=== PATIENT | male | born 1940 | race Caucasian/White ===

== ENCOUNTER 2016-09-26 14:15 | Outpatient (CLI) | payer MEDICARE | END 2016-09-26 14:16 | disposition home or self-care (01) | DX: I48.91 Unspecified atrial fibrillation (principal) ==

== ENCOUNTER 2016-10-05 14:29 | Outpatient (CLI) | payer MEDICARE | END 2016-10-05 14:30 | disposition home or self-care (01) | DX: I48.91 Unspecified atrial fibrillation (principal) ==

== ENCOUNTER 2016-10-08 08:25 | Outpatient (CLI) | payer MEDICARE | END 2016-10-08 08:26 | disposition home or self-care (01) | DX: I48.91 Unspecified atrial fibrillation (principal) ==

== ENCOUNTER 2016-10-15 08:24 | Outpatient (CLI) | payer MEDICARE | END 2016-10-15 08:25 | disposition home or self-care (01) | DX: I48.91 Unspecified atrial fibrillation (principal) ==

== ENCOUNTER 2016-10-24 10:44 | Outpatient (CLI) | payer MEDICARE | END 2016-10-24 10:45 | disposition home or self-care (01) | DX: J30.9 Allergic rhinitis, unspecified (principal); D64.9 Anemia, unspecified; I48.91 Unspecified atrial fibrillation; L30.9 Dermatitis, unspecified; E78.5 Hyperlipidemia, unspecified; R73.01 Impaired fasting glucose; G47.33 Obstructive sleep apnea (adult) (pediatric); M25.561 Pain in right knee; R91.1 Solitary pulmonary nodule; I10 Essential (primary) hypertension ==

== ENCOUNTER 2016-11-26 14:15 | Outpatient (CLI) | payer MEDICARE | END 2016-11-26 14:16 | disposition home or self-care (01) | DX: I48.91 Unspecified atrial fibrillation (principal) ==

== ENCOUNTER 2016-11-27 13:20 | Outpatient (CLI) | payer MEDICARE ==
--- NOTE | 2016-11-27 16:48 | XRAY Report ---
THREE-VIEW RIGHT ANKLE: 11/27/2016 CLINICAL INDICATION: Pain. COMPARISON: Preop imaging 10/29/2014. FINDINGS: AP, lateral, oblique views of the right ankle demonstrate replacement of the tibiotalar george int. Diffuse soft tissue swelling is present. Three screws are noted in the calcaneus. There is no evidence of acute fracture. IMPRESSION: POSTOPERATIVE CHANGES OF TIBIOTALAR JOINT REPLACEMENT AND CALCANEAL FIXATION. NO EVIDEN CE OF ACUTE FRACTURE. JOB #: [id number] EXT JOB #:[id number]
== END 2016-11-27 13:21 | disposition home or self-care (01) ==
LOC: DI.S 13:20
PROVIDERS: ATTEND Internal Medicine
DX: M25.571 Pain in right ankle and joints of right foot (principal); Z96.661 Presence of right artificial ankle joint

== ENCOUNTER 2016-12-10 10:16 | Outpatient (CLI) | payer MEDICARE | END 2016-12-10 10:17 | disposition home or self-care (01) | DX: I48.91 Unspecified atrial fibrillation (principal) ==

== ENCOUNTER 2016-12-12 14:57 | Outpatient (CLI) | payer MEDICARE | END 2016-12-12 14:58 | disposition home or self-care (01) | DX: G47.33 Obstructive sleep apnea (adult) (pediatric) (principal) | CPT/HCPCS: 99214; G0463 ==

== ENCOUNTER 2016-12-24 08:00 | Outpatient (CLI) | payer MEDICARE | END 2016-12-24 08:01 | disposition home or self-care (01) | DX: Z53.9 Procedure and treatment not carried out, unspecified reason (principal) ==

== ENCOUNTER 2016-12-24 14:15 | Outpatient (CLI) | payer MEDICARE | END 2016-12-24 14:16 | disposition home or self-care (01) | DX: I48.91 Unspecified atrial fibrillation (principal) ==

== ENCOUNTER 2017-01-07 09:54 | Outpatient (CLI) | payer MEDICARE | END 2017-01-07 09:55 | disposition home or self-care (01) | DX: I48.91 Unspecified atrial fibrillation (principal) ==

== ENCOUNTER 2017-01-07 14:41 | Outpatient (CLI) | payer MEDICARE | END 2017-01-07 14:42 | disposition home or self-care (01) | DX: I48.91 Unspecified atrial fibrillation (principal); N40.1 Benign prostatic hyperplasia with lower urinary tract symptoms ==

== ENCOUNTER 2017-01-14 08:20 | Outpatient (CLI) | payer MEDICARE | END 2017-01-14 08:21 | disposition home or self-care (01) | DX: Z79.01 Long term (current) use of anticoagulants (principal) ==

== ENCOUNTER 2017-01-28 13:28 | Outpatient (CLI) | payer MEDICARE | END 2017-01-28 13:29 | disposition home or self-care (01) | LOC: LAB.S 13:28 | PROVIDERS: ATTEND Internal Medicine | DX: I48.91 Unspecified atrial fibrillation (principal) | CPT/HCPCS: 85610 ==

== ENCOUNTER 2017-02-04 10:52 | Outpatient (CLI) | payer MEDICARE | END 2017-02-04 10:53 | disposition home or self-care (01) | LOC: LAB.S 10:52 | PROVIDERS: ATTEND Internal Medicine | DX: I48.91 Unspecified atrial fibrillation (principal) | CPT/HCPCS: 85610 ==

== ENCOUNTER 2017-02-18 11:49 | Outpatient (CLI) | payer MEDICARE | END 2017-02-18 23:59 | disposition home or self-care (01) | LOC: LAB.S 11:49 | PROVIDERS: ATTEND Internal Medicine | DX: I48.91 Unspecified atrial fibrillation (principal) | CPT/HCPCS: 85610 ==

== ENCOUNTER 2017-03-04 09:05 | Outpatient (CLI) | payer MEDICARE | END 2017-03-04 09:06 | disposition home or self-care (01) | LOC: LAB.S 09:05 | PROVIDERS: ATTEND Internal Medicine | DX: I48.91 Unspecified atrial fibrillation (principal) | CPT/HCPCS: 85610 ==

== ENCOUNTER 2017-03-07 14:53 | Outpatient (CLI) | payer MEDICARE ==
--- NOTE | 2017-03-07 19:05 | CT Report ---
CT OF THE CHEST WITHOUT CONTRAST: 03/07/2017 CLINICAL HISTORY: On preceding exam of 08/31/2016, a 0.6 cm noncalcified nodule was noted in the anterior aspect of the right middle lobe. Present finding is being done to follow this lesion. TECHNIQUE: Axial, coronal, and sagittal reconstruction images were done at 5 x 5 mm intervals. FINDINGS: Mediastinum demonstrates mild paratracheal adenopathy as noted. There are some small benign-appearing paratracheal lymph nodes, the largest of which is in the right paratracheal area, once again seen. The vary from a few millimeters to 0.5 cm in diameter. They continue to have a benign appearance. Several small anterior carinal lymph nodes are once again noted and unchanged in size. They vary from a few millimeters to 0.7 cm. Normal cardiac size is seen with extensive coronary artery calcification noted in the left coronary artery and the anterior descending coronary artery. Also, coronary artery calcification is seen in the circumflex and right coronary arteries. Lung windows today demonstrate once again the 6 mm noncalcified nodule in the inferior anterior aspect of the right middle lobe. This is seen on axial slice 46. The size of this nodule is unchanged as compared to preceding exam. Some mild scarring and bleb formation is seen in the lung apices. There is a small focal subpleural density along the lateral posterior subpleural aspect of the right upper lobe that most likely represents some minimal pleural thickening and is unchanged. No new nodules are detected in the lung matthews. Some mild atelectasis or scarring is seen in the inferior segment of the left lingula. Bones show no significant abnormality. Upper abdomen demonstrates the liver to show a slightly septated cyst measuring 1.7 cm in the superior aspect of the medial right lobe of the liver. It is unchanged as compared to preceding exam. Bones show no significant abnormality. Anterior spur formation is seen in the thoracic spine with bridging osteophytes. With 6 mm nodules, recommend a repeat CT exam in 18 months according to Fleischner Society criteria. IMPRESSION: NO CHANGE IS DETECTED IN PREVIOUSLY SEEN 6 MM NODULE IN THE ANTERIOR INFERIOR ASPECT OF THE RIGHT MIDDLE LOBE COMPARED TO 08/31/2016. ACCORDING TO FLEISCHNER SOCIETY CRITERIA, RECOMMEND THE NEXT CT OF THE CHEST BE OBTAINED IN 18 MONTHS FOR FURTHER EVALUATION. BENIGN CYST IS SEEN IN THE SUPERIOR ASPECT OF THE RIGHT LOBE OF THE LIVER, MEASURING 1.7 CM. In accordance with CT protocol optimization, one or more of the following dose reduction techniques were utilized for this exam: automated exposure control, adjustment of mA and/or KV based on patient size, or use of iterative reconstructive technique. JOB #: [id number] EXT JOB #: [id number] MTDD
== END 2017-03-07 14:54 | disposition home or self-care (01) ==
LOC: DI 14:53
PROVIDERS: ATTEND Internal Medicine
DX: R91.1 Solitary pulmonary nodule (principal)
CPT/HCPCS: 71250

== ENCOUNTER 2017-03-11 09:24 | Outpatient (CLI) | payer MEDICARE | END 2017-03-11 09:25 | disposition home or self-care (01) | LOC: LAB.S 09:24 | PROVIDERS: ATTEND Internal Medicine | DX: I48.91 Unspecified atrial fibrillation (principal) | CPT/HCPCS: 85610 ==

== ENCOUNTER 2017-04-01 08:59 | Outpatient (CLI) | payer MEDICARE | END 2017-04-01 09:00 | disposition home or self-care (01) | LOC: LAB.S 08:59 | PROVIDERS: ATTEND Internal Medicine | DX: I48.91 Unspecified atrial fibrillation (principal) | CPT/HCPCS: 85610 ==

== ENCOUNTER 2017-04-15 08:00 | Outpatient (CLI) | payer MEDICARE | END 2017-04-15 08:01 | disposition home or self-care (01) | LOC: LAB.S 08:00 | PROVIDERS: ATTEND Internal Medicine | DX: I48.91 Unspecified atrial fibrillation (principal) | CPT/HCPCS: 85610 ==

== ENCOUNTER 2017-05-02 08:07 | Outpatient (CLI) | payer MEDICARE | END 2017-05-02 08:08 | disposition home or self-care (01) | LOC: LAB.F 08:07 | PROVIDERS: ATTEND Internal Medicine | DX: I48.91 Unspecified atrial fibrillation (principal) | CPT/HCPCS: 85610 ==

== ENCOUNTER 2017-05-09 07:39 | Outpatient (CLI) | payer MEDICARE | END 2017-05-09 07:40 | disposition home or self-care (01) | LOC: LAB.F 07:39 | PROVIDERS: ATTEND Internal Medicine | DX: I48.91 Unspecified atrial fibrillation (principal) | CPT/HCPCS: 85610 ==

== ENCOUNTER 2017-06-10 10:19 | Outpatient (CLI) | payer MEDICARE | END 2017-06-10 10:20 | disposition home or self-care (01) | LOC: LAB.S 10:19 | PROVIDERS: ATTEND Internal Medicine | DX: I48.91 Unspecified atrial fibrillation (principal) | CPT/HCPCS: 85610 ==

== ENCOUNTER 2017-06-20 11:21 | Outpatient (CLI) | payer MEDICARE | END 2017-06-20 11:22 | disposition home or self-care (01) | LOC: LAB.F 11:21 | PROVIDERS: ATTEND Internal Medicine | DX: I48.91 Unspecified atrial fibrillation (principal) | CPT/HCPCS: 85610 ==

== ENCOUNTER 2017-08-07 07:18 | Outpatient (CLI) | payer MEDICARE ==
[2017-08-07 10:58] LABS: BASOPHILS % (AUTO) 0.5 %; EOSINOPHILS # (AUTO) 0.1 10^3/uL (0.0-0.7); EOSINOPHILS % (AUTO) 2.2 %; HCT - HEMATOCRIT 37.7 % (42.0-52.0); HGB - HEMOGLOBIN 12.8 g/dL (14.0-18.0); LYMPHOCYTES # (AUTO) 1.1 10^3/uL (1.5-3.5); LYMPHOCYTES % (AUTO) 21.7 %; MEAN CORPUSCULAR HEMOGLOBIN 31.4 pg (27.0-31.0); MEAN CORPUSCULAR VOLUME 92.4 fL (80.0-94.0); MEAN PLATELET VOLUME 7.8 fL (7.4-11.4); MONOCYTES # (AUTO) 0.5 10^3/uL (0.0-1.0); MONOCYTES % (AUTO) 9.3 %; NEUTROPHILS # (AUTO) 3.4 10^3/uL (1.5-6.6); NEUTROPHILS % (AUTO) 66.3 %; NUCLEATED RED BLOOD CELLS AUTO 0.1 /100WBC; RED BLOOD COUNT 4.09 10^6/uL (4.70-6.10); RED CELL DISTRIBUTION WIDTH 14.9 % (12.0-15.0); UNCORRECTED WHITE BLOOD COUNT 5.1 x10^3/uL; WHITE BLOOD COUNT 5.1 x10^3/uL (4.8-10.8)
[2017-08-07 11:03] LABS: INR 2.3 (0.8-1.2); PT - PROTHROMBIN TIME 24.9 secs (9.9-12.6)
[2017-08-07 11:12] LABS: ALBUMIN/GLOBULIN RATIO 1.3 (1.0-2.2); BILIRUBIN,TOTAL 0.6 mg/dL (0.2-1.0); BUN - BLOOD UREA NITROGEN 14 mg/dL (6-20); CALCIUM 8.8 mg/dL (8.5-10.3); CARBON DIOXIDE - CO2 27 mmol/L (21-32); CHLORIDE 106 mmol/L (101-111); CHOL/HDL RATIO 3.1 (<5.0); CHOLESTEROL 145 mg/dL; CREATININE 0.6 mg/dL (0.6-1.2); GFR - MDRD 130 (>89); GLUCOSE 101 mg/dL (70-100); HDL CHOLESTEROL 47 mg/dL; LDL/HDL RATIO 1.9 (<3.6); POTASSIUM 3.8 mmol/L (3.5-5.0); SODIUM 140 mmol/L (135-145); TOTAL PROTEIN 6.8 g/dL (6.7-8.2); TRIGLYCERIDES 48 mg/dL; VLDL CHOLESTEROL 10 mg/dL
[2017-08-07 11:22] LABS: HEMOGLOBIN A1C 0.56 g/dL
== END 2017-08-07 07:19 | disposition home or self-care (01) ==
LOC: LAB.F 07:18
PROVIDERS: ATTEND Internal Medicine
DX: I10 Essential (primary) hypertension (principal); E78.5 Hyperlipidemia, unspecified; E55.9 Vitamin D deficiency, unspecified; R73.01 Impaired fasting glucose; Z12.5 Encounter for screening for malignant neoplasm of prostate; R35.1 Nocturia; D64.9 Anemia, unspecified; Z79.01 Long term (current) use of anticoagulants
CPT/HCPCS: 36415; 80053; 80061; 82306; 83036; 84153; 85025; 85610

== ENCOUNTER 2017-08-28 11:38 | Outpatient (CLI) | payer MEDICARE | END 2017-08-28 11:39 | disposition home or self-care (01) | LOC: LAB.F 11:38 | PROVIDERS: ATTEND Internal Medicine | DX: I48.91 Unspecified atrial fibrillation (principal); Z79.01 Long term (current) use of anticoagulants | CPT/HCPCS: 85610 ==

== ENCOUNTER 2017-09-19 14:04 | Outpatient (CLI) | payer MEDICARE | END 2017-09-19 14:05 | disposition home or self-care (01) | LOC: LAB.F 14:04 | PROVIDERS: ATTEND Physician Assistant Medical | DX: Z79.01 Long term (current) use of anticoagulants (principal) | CPT/HCPCS: 85610 ==

== ENCOUNTER 2017-09-30 10:13 | Outpatient (CLI) | payer MEDICARE | END 2017-09-30 10:14 | disposition home or self-care (01) | LOC: LAB.F 10:13 | PROVIDERS: ATTEND Physician Assistant Medical | DX: Z79.01 Long term (current) use of anticoagulants (principal) | CPT/HCPCS: 85610 ==

== ENCOUNTER 2017-10-14 09:24 | Outpatient (CLI) | payer MEDICARE | END 2017-10-14 09:25 | disposition home or self-care (01) | LOC: LAB.S 09:24 | PROVIDERS: ATTEND Physician Assistant Medical | DX: Z79.01 Long term (current) use of anticoagulants (principal) | CPT/HCPCS: 85610 ==

== ENCOUNTER 2017-10-29 10:48 | Outpatient (CLI) | payer MEDICARE | END 2017-10-29 10:49 | disposition home or self-care (01) | LOC: LAB.F 10:48 | PROVIDERS: ATTEND Physician Assistant Medical | DX: Z79.01 Long term (current) use of anticoagulants (principal) | CPT/HCPCS: 85610 ==

== ENCOUNTER 2017-11-01 07:00 | Day surgery (SDC) | payer MEDICARE ==
[2017-11-01] MEDS ORDERED: GLUCAGON 1 MG/ML VIAL IM ONE (07:01)
[2017-11-01] MEDS ORDERED: LIDOCAINE-MPF 2% 5 ML VIAL IM ONE (07:01)
[2017-11-01] MEDS ORDERED: PROPOFOL 200 MG/20 ML VIAL IVP ONE (07:01)
[2017-11-01] MEDS ORDERED: LACTATED RINGERS 1,000 ML IV ONE ×2 (07:12→09:03)
[2017-11-01 09:23] VITALS: BP 146/85
== END 2017-11-01 07:01 | disposition home or self-care (01) ==
LOC: SDS 07:00
PROVIDERS: ATTEND Surgery
PROC: 0DBL8ZX Excision of Transverse Colon, Via Natural or Artificial Opening Endoscopic, Diagnostic (ICD-10-PCS; 2017-11-01)
PROC: 0DBN8ZX Excision of Sigmoid Colon, Via Natural or Artificial Opening Endoscopic, Diagnostic (ICD-10-PCS; 2017-11-01)
PROC: 0DBP8ZX Excision of Rectum, Via Natural or Artificial Opening Endoscopic, Diagnostic (ICD-10-PCS; 2017-11-01)
PROC: 0DBM8ZX Excision of Descending Colon, Via Natural or Artificial Opening Endoscopic, Diagnostic (ICD-10-PCS; principal; 2017-11-01 08:15)
DX: Z12.11 Encounter for screening for malignant neoplasm of colon (principal); K57.30 Diverticulosis of large intestine without perforation or abscess without bleeding; K64.8 Other hemorrhoids; D12.3 Benign neoplasm of transverse colon; D12.5 Benign neoplasm of sigmoid colon; K62.1 Rectal polyp; K63.5 Polyp of colon; I48.0 Paroxysmal atrial fibrillation; I10 Essential (primary) hypertension; E78.5 Hyperlipidemia, unspecified; Z79.01 Long term (current) use of anticoagulants
CPT/HCPCS: 45384; J7120

== ENCOUNTER 2017-11-08 07:23 | Outpatient (CLI) | payer MEDICARE | END 2017-11-08 07:24 | disposition home or self-care (01) | LOC: LAB.F 07:23 | PROVIDERS: ATTEND Physician Assistant Medical | DX: Z79.01 Long term (current) use of anticoagulants (principal) | CPT/HCPCS: 85610 ==

== ENCOUNTER 2017-11-11 08:00 | Outpatient (CLI) | payer MEDICARE | END 2017-11-11 08:01 | disposition home or self-care (01) | LOC: LAB.S 08:00 | PROVIDERS: ATTEND Internal Medicine | DX: I48.91 Unspecified atrial fibrillation (principal) | CPT/HCPCS: 85610 ==

== ENCOUNTER 2017-11-15 09:44 | Outpatient (CLI) | payer MEDICARE | END 2017-11-15 09:45 | disposition home or self-care (01) | LOC: LAB.F 09:44 | PROVIDERS: ATTEND Physician Assistant Medical | DX: Z79.01 Long term (current) use of anticoagulants (principal) | CPT/HCPCS: 85610 ==

== ENCOUNTER 2017-11-28 09:42 | Outpatient (CLI) | payer MEDICARE | END 2017-11-28 09:43 | disposition home or self-care (01) | LOC: LAB.F 09:42 | PROVIDERS: ATTEND Physician Assistant Medical | DX: Z79.01 Long term (current) use of anticoagulants (principal) | CPT/HCPCS: 85610 ==

== ENCOUNTER 2017-12-05 13:09 | Outpatient (CLI) | payer MEDICARE | END 2017-12-05 13:10 | disposition home or self-care (01) | LOC: LAB.F 13:09 | PROVIDERS: ATTEND Physician Assistant Medical | DX: Z79.01 Long term (current) use of anticoagulants (principal) | CPT/HCPCS: 85610 ==

== ENCOUNTER 2017-12-10 11:00 | Outpatient (CLI) | payer MEDICARE | END 2017-12-10 11:01 | disposition home or self-care (01) | LOC: LAB.F 11:00 | PROVIDERS: ATTEND Physician Assistant Medical | DX: Z79.01 Long term (current) use of anticoagulants (principal) | CPT/HCPCS: 85610 ==

== ENCOUNTER 2017-12-16 08:00 | Outpatient (CLI) | payer MEDICARE ==
[2017-12-16 18:14] LABS: PSA FREE 0.59 ng/mL (0.16-2.81)
[2017-12-16 18:15] LABS: PSA TOTAL 3.23 ng/mL (0.000-2.000)
[2017-12-16 18:26] LABS: ALBUMIN 4.1 g/dL (3.2-5.5); ALBUMIN/GLOBULIN RATIO 1.5 (1.0-2.2); ALKALINE PHOSPHATASE 61 IU/L (42-121); ALT ALANINE AMINOTRANSFERASE 25 IU/L (10-60); AST ASPARTATE AMINOTRANSFERASE 21 IU/L (10-42); BILIRUBIN,TOTAL 0.6 mg/dL (0.2-1.0); BUN - BLOOD UREA NITROGEN 23 mg/dL (6-20); CALCIUM 9.3 mg/dL (8.5-10.3); CARBON DIOXIDE - CO2 30 mmol/L (21-32); CHLORIDE 103 mmol/L (101-111); CHOL/HDL RATIO 3.1 (<5.0); CHOLESTEROL 167 mg/dL; CREATININE 0.9 mg/dL (0.6-1.2); GFR - MDRD 82 (>89); GLUCOSE 102 mg/dL (70-100); HDL CHOLESTEROL 54 mg/dL; LDL CHOLESTEROL,CALCULATED 102 mg/dL; LDL/HDL RATIO 1.9 (<3.6); SODIUM 140 mmol/L (135-145); TOTAL PROTEIN 6.8 g/dL (6.7-8.2); VLDL CHOLESTEROL 11 mg/dL
[2017-12-16 19:20] LABS: HB2 TOTAL 13.8 g/dL; HEMOGLOBIN A1C 0.61 g/dL; HEMOGLOBIN A1C % 6.2 % (4.6-6.2)
== END 2017-12-16 08:01 ==
LOC: LAB.S 08:00
PROVIDERS: ATTEND Physician Assistant Medical
DX: Z79.01 Long term (current) use of anticoagulants (principal); I10 Essential (primary) hypertension; E78.5 Hyperlipidemia, unspecified; R73.01 Impaired fasting glucose; R97.20 Elevated prostate specific antigen [PSA]
CPT/HCPCS: 36415; 80053; 80061; 83036; 83721; 84154; 85610

== ENCOUNTER 2017-12-23 15:05 | Emergency (ER) | payer MEDICARE ==
[2017-12-23 15:46] LABS: BASOPHILS % (AUTO) 0.5 %; EOSINOPHILS % (AUTO) 0.4 %; HGB - HEMOGLOBIN 13.5 g/dL (14.0-18.0); LYMPHOCYTES # (AUTO) 1.1 10^3/uL (1.5-3.5); LYMPHOCYTES % (AUTO) 11.1 %; MEAN CORPUSCULAR HGB CONC 32.7 g/dL (32.0-36.0); MEAN CORPUSCULAR VOLUME 91.5 fL (80.0-94.0); MEAN PLATELET VOLUME 7.1 fL (7.4-11.4); MONOCYTES # (AUTO) 0.7 10^3/uL (0.0-1.0); MONOCYTES % (AUTO) 7.4 %; NEUTROPHILS # (AUTO) 7.9 10^3/uL (1.5-6.6); NEUTROPHILS % (AUTO) 80.6 %; PLT - PLATELET COUNT 302 10^3/uL (130-450); RED BLOOD COUNT 4.51 10^6/uL (4.70-6.10); RED CELL DISTRIBUTION WIDTH 14.7 % (12.0-15.0); WHITE BLOOD COUNT 9.8 x10^3/uL (4.8-10.8)
--- NOTE | 2017-12-23 15:47 | XRAY Preliminary Report ---
Exam: XR CHEST 2 VIEW X-RAY IMPRESSION: Normal 2-view chest radiography. Note that follow-up chest CT to confirm long-term stabil ity of the 6 mm right middle lobe is still recommended as per chest CT report 03/07/2017. [facility] SITE ID: [id number]
--- NOTE | 2017-12-23 15:50 | XRAY Report ---
EXAM: CHEST RADIOGRAPHY EXAM DATE: 12/23/2017 03:31 PM. CLINICAL HISTORY: Shortness of breath and chest pressure since early this morning. COMPARISON: CT chest 03/07/2017. TECHNIQUE: 2 views. FINDINGS: Lungs/Pleura: No focal opacities evident. No pleural effusion. No pneumothorax. Normal volumes. The 6 mm noncalcified nodule noted in the inferior aspect right middle lobe not seen on the chest x-r ay. Mediastinum: Heart and mediastinal contours are unremarkable. Other: None. IMPRESSION: Normal 2-view chest radiography. Note that follow-up chest CT to confirm long-term stabil ity of the 6 mm right middle lobe nodule is still recommended as per chest CT report 03/07/2017. [facility] Referring Provider Line: [phone] SITE ID: [id number]
[2017-12-23 15:59] LABS: ALBUMIN 4.3 g/dL (3.2-5.5); ALBUMIN/GLOBULIN RATIO 1.4 (1.0-2.2); BILIRUBIN,TOTAL 0.8 mg/dL (0.2-1.0); CREATININE 1.4 mg/dL (0.6-1.2); TOTAL PROTEIN 7.3 g/dL (6.7-8.2)
--- NOTE | 2017-12-23 17:25 | ED Physician Documentation ---
PD HPI CHEST PAIN - Stated complaint Stated Complaint: CHEST PX/LOW BLOOD PRESSURE - Chief complaint Chief Complaint: Cardiac - History obtained from History obtained from: Patient - History of Present Illness Timing - onset: How many hours ago (7), Today (this morning) Timing - onset during: Rest (he felt some chest pressure when he awoke this morning and lasted about 1/2 hour. He took his BP by home helath erikae there for his and got BP 80/40. He did not note heart rate. Did not feel faint. He is subsequently feeling okay the rest of the morning. He called his PMD office and referred to ED.) Timing - details: Gradual onset, Now resolved Quality: Pressure, Tightness Location: Substernal, Left chest Radiation: No: Neck, Left upper extremity, Right upper extremity Worsened by: No: Inspiration, Eating, Movement Associated symptoms: No: Shortness of air, Diaphoresis, Nausea, Feeling faint / dizzy, Palpitations Similar symptoms before: Has not had sx before Recently seen: Not recently seen Review of Systems Constitutional: denies: Fever, Chills Nose: denies: Rhinorrhea / runny nose, Congestion Throat: denies: Sore throat Cardiac: denies: Chest pain / pressure, Palpitations Respiratory: denies: Dyspnea, Cough GI: denies: Abdominal Pain, Nausea, Vomiting, Diarrhea, Bloody / black stool : denies: Dysuria, Frequency Skin: denies: Rash, Lesions Neurologic: denies: Focal weakness, Numbness, Difficulty speaking, Near syncope , Altered mental status, Headache Endocrine: denies: Weight loss Immunocompromised: denies: Immunocompromised PD PAST MEDICAL HISTORY - Past Medical History Cardiovascular: Atrial fibrillation Respiratory: None Neuro: None Endocrine/Autoimmune: None - Present Medications Home Medications: Ambulatory Orders Medication Instructions Recorded Confirmed Atorvastatin [Lipitor] 10 mg PO DAILY 11/01/17 11/01/17 Diltiazem HCl [Dilt-Xr] 360 mg PO DAILY 11/01/17 11/01/17 Warfarin Sodium 10 mg PO DAILY 11/01/17 11/01/17 hydroCHLOROthiazide 25 mg PO DAILY 11/01/17 11/01/17 [Hydrochlorothiazide] - Allergies Allergies/Adverse Reactions: Allergies Allergy/AdvReac Type Severity Reaction Status Date / Time No Known Drug Allergies Allergy Verified 11/01/17 07:25 - Family History Family history: denies: Aortic aneursym, Aortic dissection PD ED PE NORMAL - Vitals Vital signs reviewed: Yes - General General: Alert and oriented X 3, No acute distress, Well developed/nourished - HEENT HEENT: Pharynx benign - Neck Neck: Supple, no meningeal sign, No adenopathy - Cardiac Cardiac: No murmur. No: RRR (fast rate about 120-130 with some irregular. ) - Respiratory Respiratory: Clear bilaterally - Abdomen Abdomen: Soft, Non tender - Back Back: No CVA TTP - Derm Derm: Normal color, Warm and dry - Extremities Extremities: No tenderness to palpate, No edema, No calf tenderness / cord Results - Vitals Vitals: Oxygen O2 Source Room air - EKG (time done) 15:14 Rate: Rate (enter#) (125) Rhythm: Atrial fibrillation [place]: LAD Intervals: RBBB Ischemia: Normal ST segments, Non specific changes (correlated with the BBB.) Compare to prior EKG: Unchanged from prior EKG - Labs Labs: Laboratory Tests 12/23/17 12/23/17 12/23/17 13:46 15:36 15:36 WBC 9.8 RBC 4.51 L Hgb 13.5 L Hct 41.3 L MCV 91.5 MCH 30.0 MCHC 32.7 RDW 14.7 Plt Count 302 MPV 7.1 L Neut # 7.9 H Lymph # 1.1 L [place] # 0.7 Eos # 0.0 Baso # 0.0 Absolute Nucleated RBC 0.01 Nucleated RBC % 0.1 PT 37.0 H INR 3.4 H Sodium 136 Potassium 4.0 Chloride 102 Carbon Dioxide 26 Anion Gap 8.0 BUN 31 H Creatinine 1.4 H Estimated GFR (MDRD) 49 L Glucose 125 H Calcium 9.0 Magnesium Total Bilirubin 0.8 AST 23 ALT 27 Alkaline Phosphatase 71 Troponin I Total Protein 7.3 Albumin 4.3 Globulin 3.0 Albumin/Globulin Ratio 1.4 Lipase 12 L 12/23/17 12/23/17 15:36 17:49 WBC RBC Hgb Hct MCV MCH MCHC RDW Plt Count MPV Neut # Lymph # [place] # Eos # Baso # Absolute Nucleated RBC Nucleated RBC % PT INR Sodium Potassium Chloride Carbon Dioxide Anion Gap BUN Creatinine Estimated GFR (MDRD) Glucose Calcium Magnesium 2.2 Total Bilirubin AST ALT Alkaline Phosphatase Troponin I 0.05 Total Protein Albumin Globulin Albumin/Globulin Ratio Lipase - Rads (name of study) chest Radiology: Prelim report reviewed, EMP read contemporaneously (normal) PD MEDICAL DECISION MAKING - ED course Complexity details: reviewed results, re-evaluated patient (his atrial fib is slower but still about 100 and he is feeling okay. He has short bursts of faster rate, but feels okay with it. ), considered differential (transient low BP with lightheadedness. He is in atrial fib and this seems chronic and he believes it is chronic. Given IV med to slow the rate from 130s to 100. Normal BP while in ED. Labs are okay. He would like to go home and this seems reasonable. ), d/w patient Departure - Departure Disposition: 01 Home, Self Care Clinical Impression: Near syncope, Atrial fibrillation with rapid ventricular response, Transient hypotension Condition: Stable Record reviewed to determine appropriate education?: Yes Instructions: ED Afib Follow-Up: Darby Estrada PA-C [Primary Care Provider] - Comments: Drink lots of fluids. Continue usual medications. It looks that your heart rate fibrillation is going fast and slow at times. This may have given your symptoms earlier today if it was going fast more consistently. He seemed to be doing okay right now. Continue usual medications and follow-up with your primary care in the next couple of days. Return if repeated symptoms or chest pain, lightheadedness, consistently fast heart rate. Discharge Date/Time: 12/23/17 20:05
[2017-12-23 18:07] LABS: INR 3.4 (0.8-1.2)
[2017-12-23] MEDS ORDERED: diltiaZEM INJ 5 MG/ML VIAL IVP STA (19:04)
[2017-12-23 20:05] VITALS: BP 127/94
== END 2017-12-23 20:05 | disposition home or self-care (01) ==
LOC: ED 15:05
DX: R55 Syncope and collapse (principal); I48.91 Unspecified atrial fibrillation; I95.9 Hypotension, unspecified; I45.10 Unspecified right bundle-branch block; Z79.01 Long term (current) use of anticoagulants
CPT/HCPCS: 36415; 71046; 80053; 83690; 83735; 84484; 85025; 85610; 93005; 96374; 99284

== ENCOUNTER 2017-12-30 10:41 | Outpatient (CLI) | payer MEDICARE | END 2017-12-30 10:42 | LOC: LAB.S 10:41 | PROVIDERS: ATTEND Physician Assistant Medical | DX: Z79.01 Long term (current) use of anticoagulants (principal) | CPT/HCPCS: 85610 ==

== ENCOUNTER 2018-01-06 09:08 | Outpatient (CLI) | payer MEDICARE | END 2018-01-06 09:09 | disposition home or self-care (01) | LOC: LAB.S 09:08 | PROVIDERS: ATTEND Physician Assistant Medical | DX: Z79.01 Long term (current) use of anticoagulants (principal) | CPT/HCPCS: 85610 ==

== ENCOUNTER 2018-01-17 14:37 | Outpatient (CLI) | payer MEDICARE | END 2018-01-17 14:38 | disposition home or self-care (01) | LOC: LAB.F 14:37 | PROVIDERS: ATTEND Family Medicine | DX: Z79.01 Long term (current) use of anticoagulants (principal); I48.91 Unspecified atrial fibrillation | CPT/HCPCS: 85610 ==

== ENCOUNTER 2018-01-20 08:00 | Outpatient (CLI) | payer MEDICARE | END 2018-01-20 08:01 | disposition home or self-care (01) | LOC: LAB.S 08:00 | PROVIDERS: ATTEND Family Medicine | DX: I48.0 Paroxysmal atrial fibrillation (principal); Z79.01 Long term (current) use of anticoagulants | CPT/HCPCS: 85610 ==

== ENCOUNTER 2018-01-27 09:41 | Outpatient (CLI) | payer MEDICARE | END 2018-01-27 09:42 | disposition home or self-care (01) | LOC: LAB.S 09:41 | PROVIDERS: ATTEND Family Medicine | DX: I48.91 Unspecified atrial fibrillation (principal); Z79.01 Long term (current) use of anticoagulants | CPT/HCPCS: 85610 ==

== ENCOUNTER 2018-01-31 13:12 | Outpatient (CLI) | payer MEDICARE | END 2018-01-31 13:13 | disposition home or self-care (01) | LOC: LAB.F 13:12 | PROVIDERS: ATTEND Family Medicine | DX: I48.91 Unspecified atrial fibrillation (principal); Z79.01 Long term (current) use of anticoagulants | CPT/HCPCS: 85610 ==

== ENCOUNTER 2018-02-07 15:04 | Outpatient (CLI) | payer MEDICARE | END 2018-02-07 15:05 | disposition home or self-care (01) | LOC: LAB.F 15:04 | PROVIDERS: ATTEND Family Medicine | DX: I48.91 Unspecified atrial fibrillation (principal); Z79.01 Long term (current) use of anticoagulants | CPT/HCPCS: 85610 ==

== ENCOUNTER 2018-02-17 13:32 | Outpatient (CLI) | payer MEDICARE | END 2018-02-17 13:33 | disposition home or self-care (01) | LOC: LAB.S 13:32 | PROVIDERS: ATTEND Family Medicine | DX: I48.91 Unspecified atrial fibrillation (principal); Z79.01 Long term (current) use of anticoagulants | CPT/HCPCS: 85610 ==

== ENCOUNTER 2018-03-03 15:13 | Outpatient (CLI) | payer MEDICARE | END 2018-03-03 15:14 | disposition home or self-care (01) | LOC: LAB.S 15:13 | PROVIDERS: ATTEND Family Medicine | DX: I48.91 Unspecified atrial fibrillation (principal); Z79.01 Long term (current) use of anticoagulants | CPT/HCPCS: 85610 ==

== ENCOUNTER 2018-03-18 13:26 | Outpatient (CLI) | payer MEDICARE | END 2018-03-18 13:27 | disposition home or self-care (01) | LOC: LAB.F 13:26 | PROVIDERS: ATTEND Family Medicine | DX: I48.91 Unspecified atrial fibrillation (principal); Z79.01 Long term (current) use of anticoagulants | CPT/HCPCS: 85610 ==

== ENCOUNTER 2018-03-31 13:45 | Outpatient (CLI) | payer MEDICARE | END 2018-03-31 13:46 | disposition home or self-care (01) | LOC: LAB.S 13:45 | PROVIDERS: ATTEND Family Medicine | DX: I48.91 Unspecified atrial fibrillation (principal); Z79.01 Long term (current) use of anticoagulants | CPT/HCPCS: 85610 ==

== ENCOUNTER 2018-04-04 07:14 | Outpatient (CLI) | payer MEDICARE ==
[2018-04-04 12:08] LABS: ALBUMIN/GLOBULIN RATIO 1.4 (1.0-2.2); ALKALINE PHOSPHATASE 70 IU/L (42-121); ALT ALANINE AMINOTRANSFERASE 26 IU/L (10-60); AST ASPARTATE AMINOTRANSFERASE 26 IU/L (10-42); BILIRUBIN,TOTAL 0.7 mg/dL (0.2-1.0); BUN - BLOOD UREA NITROGEN 13 mg/dL (6-20); CALCIUM 9.1 mg/dL (8.5-10.3); CARBON DIOXIDE - CO2 31 mmol/L (21-32); CHLORIDE 102 mmol/L (101-111); CHOL/HDL RATIO 3.1 (<5.0); CHOLESTEROL 167 mg/dL; CREATININE 0.7 mg/dL (0.6-1.2); GFR - MDRD 109 (>89); GLUCOSE 104 mg/dL (70-100); HDL CHOLESTEROL 54 mg/dL; LDL CHOLESTEROL,CALCULATED 100 mg/dL; LDL/HDL RATIO 1.9 (<3.6); SODIUM 139 mmol/L (135-145); TOTAL PROTEIN 6.8 g/dL (6.7-8.2); VLDL CHOLESTEROL 13 mg/dL
[2018-04-04 12:11] LABS: PSA FREE 0.72 ng/mL (0.16-2.81); PSA TOTAL 3.43 ng/mL (0.000-2.000)
[2018-04-04 12:20] LABS: HB2 TOTAL 13.8 g/dL; HEMOGLOBIN A1C 0.61 g/dL; HEMOGLOBIN A1C % 6.2 % (4.6-6.2)
== END 2018-04-04 07:15 | disposition home or self-care (01) ==
LOC: LAB.F 07:14
PROVIDERS: ATTEND Family Medicine
DX: I10 Essential (primary) hypertension (principal); E78.5 Hyperlipidemia, unspecified; R73.01 Impaired fasting glucose; I48.91 Unspecified atrial fibrillation; Z79.01 Long term (current) use of anticoagulants; R97.20 Elevated prostate specific antigen [PSA]
CPT/HCPCS: 36415; 80053; 80061; 83036; 83721; 84154; 85610

== ENCOUNTER 2018-04-15 13:12 | Outpatient (CLI) | payer MEDICARE | END 2018-04-15 13:13 | disposition home or self-care (01) | LOC: LAB.F 13:12 | PROVIDERS: ATTEND Family Medicine | DX: I48.91 Unspecified atrial fibrillation (principal); Z79.01 Long term (current) use of anticoagulants | CPT/HCPCS: 85610 ==

== ENCOUNTER 2018-04-21 15:19 | Outpatient (CLI) | payer MEDICARE | END 2018-04-21 15:20 | disposition home or self-care (01) | LOC: LAB.S 15:19 | PROVIDERS: ATTEND Family Medicine | DX: I48.91 Unspecified atrial fibrillation (principal); Z79.01 Long term (current) use of anticoagulants | CPT/HCPCS: 85610 ==

== ENCOUNTER 2018-05-27 13:15 | Outpatient (CLI) | payer MEDICARE | END 2018-05-27 13:16 | disposition home or self-care (01) | LOC: LAB.F 13:15 | PROVIDERS: ATTEND Nurse Practitioner Family | DX: I48.0 Paroxysmal atrial fibrillation (principal) | CPT/HCPCS: 85610 ==

== ENCOUNTER 2018-06-26 13:36 | Outpatient (CLI) | payer MEDICARE | END 2018-06-26 13:37 | disposition home or self-care (01) | LOC: LAB.F 13:36 | PROVIDERS: ATTEND Nurse Practitioner Family | DX: I48.0 Paroxysmal atrial fibrillation (principal) | CPT/HCPCS: 85610 ==

== ENCOUNTER 2018-07-04 13:58 | Outpatient (CLI) | payer MEDICARE | END 2018-07-04 13:59 | disposition home or self-care (01) | LOC: LAB.F 13:58 | PROVIDERS: ATTEND Nurse Practitioner Family | DX: I48.0 Paroxysmal atrial fibrillation (principal) | CPT/HCPCS: 85610 ==

== ENCOUNTER 2018-07-18 02:24 | Outpatient (CLI) | payer MEDICARE | END 2018-07-18 02:25 | disposition short-term general hospital (02) | LOC: EMS 02:24 | PROVIDERS: ATTEND Surgery | DX: R07.9 Chest pain, unspecified (principal) | CPT/HCPCS: A0425; A0427 ==

== ENCOUNTER 2018-07-30 11:38 | Outpatient (CLI) | payer MEDICARE ==
[2018-07-30 18:23] LABS: INR 3.1 (0.8-1.2); PT - PROTHROMBIN TIME 34.5 secs (9.9-12.6)
== END 2018-07-30 11:39 | disposition home or self-care (01) ==
LOC: LAB.F 11:38
PROVIDERS: ATTEND Nurse Practitioner Family
DX: I48.0 Paroxysmal atrial fibrillation (principal)
CPT/HCPCS: 36415; 85610

== ENCOUNTER 2018-08-11 08:00 | Outpatient (CLI) | payer MEDICARE | END 2018-08-11 08:01 | disposition home or self-care (01) | LOC: LAB.S 08:00 | PROVIDERS: ATTEND Nurse Practitioner Family | DX: I48.0 Paroxysmal atrial fibrillation (principal) | CPT/HCPCS: 85610 ==

== ENCOUNTER 2018-08-22 13:03 | Outpatient (CLI) | payer MEDICARE | END 2018-08-22 13:04 | disposition home or self-care (01) | LOC: LAB.F 13:03 | PROVIDERS: ATTEND Nurse Practitioner Family | DX: I48.0 Paroxysmal atrial fibrillation (principal) | CPT/HCPCS: 85610 ==

== ENCOUNTER 2018-09-01 19:39 | Outpatient (CLI) | payer MEDICARE | END 2018-09-01 23:59 | disposition home or self-care (01) | LOC: LAB.S 19:39 | PROVIDERS: ATTEND Nurse Practitioner Family | DX: I48.0 Paroxysmal atrial fibrillation (principal) | CPT/HCPCS: 85610 ==

== ENCOUNTER 2018-09-10 08:00 | Outpatient (CLI) | payer MEDICARE | END 2018-09-10 23:59 | disposition home or self-care (01) | LOC: LAB.R 08:00 | PROVIDERS: ATTEND Nurse Practitioner Family | DX: I48.0 Paroxysmal atrial fibrillation (principal) | CPT/HCPCS: 85610 ==

== ENCOUNTER 2018-09-22 08:00 | Outpatient (CLI) | payer MEDICARE ==
[2018-09-22 19:05] LABS: BASOPHILS % (AUTO) 0.2 %; EOSINOPHILS # (AUTO) 0.1 10^3/uL (0.0-0.7); EOSINOPHILS % (AUTO) 3.2 %; HGB - HEMOGLOBIN 12.1 g/dL (14.0-18.0); LYMPHOCYTES # (AUTO) 0.9 10^3/uL (1.5-3.5); LYMPHOCYTES % (AUTO) 18.7 %; MEAN CORPUSCULAR HEMOGLOBIN 31.8 pg (27.0-31.0); MEAN CORPUSCULAR HGB CONC 33.4 g/dL (32.0-36.0); MEAN CORPUSCULAR VOLUME 95.2 fL (80.0-94.0); MEAN PLATELET VOLUME 7.6 fL (7.4-11.4); MONOCYTES # (AUTO) 0.4 10^3/uL (0.0-1.0); MONOCYTES % (AUTO) 8.8 %; NEUTROPHILS # (AUTO) 3.3 10^3/uL (1.5-6.6); NEUTROPHILS % (AUTO) 69.1 %; PLT - PLATELET COUNT 315 10^3/uL (130-450); RED CELL DISTRIBUTION WIDTH 13.4 % (12.0-15.0); WHITE BLOOD COUNT 4.7 x10^3/uL (4.8-10.8)
[2018-09-22 19:11] LABS: ALBUMIN 3.7 g/dL (3.2-5.5); ALBUMIN/GLOBULIN RATIO 1.2 (1.0-2.2); ALKALINE PHOSPHATASE 62 IU/L (42-121); ALT ALANINE AMINOTRANSFERASE 27 IU/L (10-60); AST ASPARTATE AMINOTRANSFERASE 25 IU/L (10-42); BILIRUBIN,TOTAL 0.8 mg/dL (0.2-1.0); BUN - BLOOD UREA NITROGEN 20 mg/dL (6-20); CALCIUM 8.8 mg/dL (8.5-10.3); CARBON DIOXIDE - CO2 30 mmol/L (21-32); CHLORIDE 101 mmol/L (101-111); CHOL/HDL RATIO 3.6 (<5.0); CHOLESTEROL 163 mg/dL; CREATININE 0.7 mg/dL (0.6-1.2); GFR - MDRD 109 (>89); GLUCOSE 105 mg/dL (70-100); HDL CHOLESTEROL 45 mg/dL; LDL CHOLESTEROL,CALCULATED 100 mg/dL; LDL/HDL RATIO 2.2 (<3.6); SODIUM 137 mmol/L (135-145); TOTAL PROTEIN 6.9 g/dL (6.7-8.2); VLDL CHOLESTEROL 18 mg/dL
[2018-09-22 19:14] LABS: PSA FREE 0.506 ng/mL (0.16-2.81)
[2018-09-22 19:17] LABS: PSA TOTAL 3.334 ng/mL (0.000-2.000)
[2018-09-22 20:02] LABS: HB2 TOTAL 12.5 g/dL; HEMOGLOBIN A1C 0.51 g/dL; HEMOGLOBIN A1C % 5.9 % (4.6-6.2)
== END 2018-09-22 23:59 | disposition home or self-care (01) ==
LOC: LAB.S 08:00
PROVIDERS: ATTEND Nurse Practitioner Family
DX: I48.0 Paroxysmal atrial fibrillation (principal); I10 Essential (primary) hypertension; E78.5 Hyperlipidemia, unspecified; R73.01 Impaired fasting glucose; R97.20 Elevated prostate specific antigen [PSA]
CPT/HCPCS: 36415; 80053; 80061; 83036; 83721; 84153; 84154; 85025; 85610

== ENCOUNTER 2018-10-02 09:09 | Outpatient (CLI) | payer MEDICARE | END 2018-10-02 09:10 | disposition home or self-care (01) | LOC: LAB.F 09:09 | PROVIDERS: ATTEND Nurse Practitioner Family | DX: I48.0 Paroxysmal atrial fibrillation (principal) | CPT/HCPCS: 85610 ==

== ENCOUNTER 2018-10-10 13:09 | Outpatient (CLI) | payer MEDICARE | END 2018-10-10 13:10 | disposition home or self-care (01) | LOC: LAB.F 13:09 | PROVIDERS: ATTEND Nurse Practitioner Family | DX: I48.0 Paroxysmal atrial fibrillation (principal) | CPT/HCPCS: 85610 ==

== ENCOUNTER 2018-10-17 12:44 | Outpatient (CLI) | payer MEDICARE | END 2018-10-17 12:45 | disposition home or self-care (01) | LOC: LAB.F 12:44 | PROVIDERS: ATTEND Nurse Practitioner Family | DX: I48.0 Paroxysmal atrial fibrillation (principal) | CPT/HCPCS: 85610 ==

== ENCOUNTER 2018-10-23 13:27 | Outpatient (CLI) | payer MEDICARE | END 2018-10-23 13:28 | disposition home or self-care (01) | LOC: LAB.F 13:27 | PROVIDERS: ATTEND Nurse Practitioner Family | DX: I48.0 Paroxysmal atrial fibrillation (principal) | CPT/HCPCS: 85610 ==

== ENCOUNTER 2018-10-30 13:10 | Outpatient (CLI) | payer MEDICARE | END 2018-10-30 13:11 | disposition home or self-care (01) | LOC: LAB.F 13:10 | PROVIDERS: ATTEND Nurse Practitioner Family | DX: I48.0 Paroxysmal atrial fibrillation (principal) | CPT/HCPCS: 85610 ==

== ENCOUNTER 2018-11-06 12:55 | Outpatient (CLI) | payer MEDICARE | END 2018-11-06 12:56 | disposition home or self-care (01) | LOC: LAB.F 12:55 | PROVIDERS: ATTEND Nurse Practitioner Family | DX: I48.0 Paroxysmal atrial fibrillation (principal) | CPT/HCPCS: 85610 ==

== ENCOUNTER 2018-11-24 08:00 | Outpatient (CLI) | payer MEDICARE | END 2018-11-24 23:59 | disposition home or self-care (01) | LOC: LAB.S 08:00 | PROVIDERS: ATTEND Nurse Practitioner Family | DX: I48.0 Paroxysmal atrial fibrillation (principal) | CPT/HCPCS: 85610 ==

== ENCOUNTER 2018-12-01 10:38 | Outpatient (CLI) | payer MEDICARE | END 2018-12-01 10:39 | disposition home or self-care (01) | LOC: SC 10:38 | PROVIDERS: ATTEND Nurse Practitioner Family | DX: G47.33 Obstructive sleep apnea (adult) (pediatric) (principal) | CPT/HCPCS: 99213; G0463; 99212 ==

== ENCOUNTER 2018-12-03 11:12 | Outpatient (CLI) | payer MEDICARE | END 2018-12-03 11:13 | disposition home or self-care (01) | LOC: LAB.F 11:12 | PROVIDERS: ATTEND Nurse Practitioner Family | DX: I48.0 Paroxysmal atrial fibrillation (principal) | CPT/HCPCS: 36415; 85610 ==

== ENCOUNTER 2018-12-18 13:08 | Outpatient (CLI) | payer MEDICARE | END 2018-12-18 13:09 | disposition home or self-care (01) | LOC: LAB.F 13:08 | PROVIDERS: ATTEND Nurse Practitioner Family | DX: I48.0 Paroxysmal atrial fibrillation (principal) | CPT/HCPCS: 85610 ==

== ENCOUNTER 2018-12-30 13:14 | Outpatient (CLI) | payer MEDICARE | END 2018-12-30 13:15 | disposition home or self-care (01) | LOC: LAB.F 13:14 | PROVIDERS: ATTEND Nurse Practitioner Family | DX: I48.0 Paroxysmal atrial fibrillation (principal) | CPT/HCPCS: 85610 ==

== ENCOUNTER 2019-01-15 13:28 | Outpatient (CLI) | payer MEDICARE | END 2019-01-15 13:29 | disposition home or self-care (01) | LOC: LAB.F 13:28 | PROVIDERS: ATTEND Nurse Practitioner Family | DX: I48.0 Paroxysmal atrial fibrillation (principal) | CPT/HCPCS: 85610 ==

== ENCOUNTER 2019-02-02 09:57 | Outpatient (CLI) | payer MEDICARE | END 2019-02-02 09:58 | disposition home or self-care (01) | LOC: SC 09:57 | PROVIDERS: ATTEND Nurse Practitioner Family | DX: G47.33 Obstructive sleep apnea (adult) (pediatric) (principal) | CPT/HCPCS: 99214; G0463; 99212 ==

== ENCOUNTER 2019-02-04 11:24 | Outpatient (CLI) | payer MEDICARE | END 2019-02-04 11:25 | disposition home or self-care (01) | LOC: LAB.F 11:24 | PROVIDERS: ATTEND Nurse Practitioner Family | DX: I48.0 Paroxysmal atrial fibrillation (principal) | CPT/HCPCS: 85610 ==

== ENCOUNTER 2019-02-11 09:45 | Outpatient (CLI) | payer MEDICARE | END 2019-02-11 09:46 | disposition home or self-care (01) | LOC: DI 09:45 | PROVIDERS: ATTEND Nurse Practitioner Family | DX: Z53.9 Procedure and treatment not carried out, unspecified reason (principal) ==

== ENCOUNTER 2019-02-13 14:13 | Outpatient (CLI) | payer MEDICARE | END 2019-02-13 14:14 | disposition home or self-care (01) | LOC: LAB.F 14:13 | PROVIDERS: ATTEND Physician Assistant Medical | DX: Z79.01 Long term (current) use of anticoagulants (principal) | CPT/HCPCS: 85610 ==

== ENCOUNTER 2019-02-23 11:59 | Outpatient (CLI) | payer MEDICARE | END 2019-02-23 12:00 | disposition home or self-care (01) | LOC: LAB.F 11:59 | PROVIDERS: ATTEND Physician Assistant Medical | DX: Z51.81 Encounter for therapeutic drug level monitoring (principal); Z79.01 Long term (current) use of anticoagulants | CPT/HCPCS: 85610 ==

== ENCOUNTER 2019-02-26 09:35 | Outpatient (CLI) | payer MEDICARE ==
[2019-02-26] MEDS ORDERED: REGADENOSON 0.4 MG/5 ML SYRINGE IVP ONE ×2 (12:31→12:45)
[2019-02-26] MEDS ORDERED: AMINOPHYLLINE 250 MG/10 ML VIAL ONE (12:31)
--- NOTE | 2019-02-26 17:15 | CARDIAC PROCEDURE NOTE ---
DATE OF SERVICE: 02/26/2019 Physician: Haritha Leal MD, [facility] INDICATIONS: Chest pain. CARDIAC RISK FACTORS: Advanced age, hypertension, hyperlipidemia. DESCRIPTION OF PROCEDURE: After signing informed consent, the patient underwent a Lexiscan pharmaceutical stress test with nuclear myocardial perfusion imaging. RESTING HEART RATE: 52. PEAK HEART RATE: 64. RESTING BLOOD PRESSURE: 138/66. PEAK BLOOD PRESSURE: 135/69. Lexiscan was infused per protocol. The patient had no chest pain or shortness of breath during the entire test. RESTING EKG: Sinus bradycardia, rate 52, first-degree AV block, right bundle branch block. EKG AT PEAK: No new ST or T-wave changes. IMPRESSION: 1. Abnormal resting EKG. 2. No ST or T-wave changes during this pharmaceutical stress test. 3. Nuclear images reported separately. TD: 02/26/2019 17:03 [email or web address]
--- NOTE | 2019-03-04 11:06 | Nuclear Medicine Report ---
Reason: CHEST PAIN Procedure Date: 02/26/2019 Accession Number: [id number] / [id number] Procedure: NM - Myocardial Perfusion STR/RST CPT Code: FULL RESULT: EXAM: SINGLE-ISOTOPE PHARMACOLOGICAL STRESS TEST WITH REGADENOSON. SINGLE-ISOTOPE AND TWO-DAY REST/STRESS MYOCARDIAL PERFUSION SCANS WITH TOMOGRAPHIC IMAGING, QUANTITATIVE ANALYSIS, WALL MOTION ANALYSIS AND CALCULATION OF EJECTION FRACTION. EXAM DATE: 02/26/2019 04:06 PM. Exam made available for interpretation 03/04/2019 CLINICAL HISTORY: CHEST PAIN. COMPARISON: None. TECHNIQUE: A pharmacological stress was performed with the infusion of 0.4 mg regadenoson per protocol. According to protocol, 10.9 mCi of Tc-99m sestamibi was injected for stress myocardial perfusion scan. Motion correction was applied when appropriate. The following day after the intravenous administration of 43.6 mCi of Tc-99m sestamibi, a rest myocardial perfusion scan was done with tomography. Motion correction was applied when appropriate. Gated tomographic images were obtained for wall motion analysis and computation of left ventricular ejection fraction. FINDINGS: On visual analysis, there is a severe reversible inferior wall perfusion defect. No other convincing significant reversible or fixed perfusion defects. Computer analysis indicates the presence of a fixed defect in the apex and reversible defects in mid to distal septal and mid to distal lateral trevino. The computer is incorrectly detecting bowel activity adjacent to the inferior wall as inferior wall cardiac activity. Summed stress score 24 Summed rest score 12 Summed difference score 9 Wall motion analysis demonstrates no focal wall motion abnormality. The left ventricular end-diastolic volume is 102 cc. The left ventricular end-systolic volume is 17 cc. The left ventricular ejection fraction is calculated to be 83%. IMPRESSION: 1. There is a large reversible inferior wall defect. 2. Left ventricular ejection fraction of 3. Normal segmental and global wall motion. 4. Normal left ventricular cavity size, no change with stress. 5. Based on computer analysis, severely abnormal study with moderate to severe ischemia. Please correlate findings with stress ECG tracings and procedure notes. [facility] The call report notification system was initiated by Dr. Tahir Frazier at 11:03 AM on 03/04/2019. ADDENDUM: 03/04/19 14:44 We have attempted to contact the referring provider, but the referring provider cannot be located.
== END 2019-02-26 09:36 | disposition home or self-care (01) ==
LOC: DI 09:35
PROVIDERS: ATTEND Registered Nurse
DX: I25.9 Chronic ischemic heart disease, unspecified (principal); R94.31 Abnormal electrocardiogram [ECG] [EKG]; I10 Essential (primary) hypertension; E78.5 Hyperlipidemia, unspecified
CPT/HCPCS: 78452; 93016; 93017; 93018; A9500; J2785

== ENCOUNTER 2019-03-03 08:54 | Outpatient (CLI) | payer MEDICARE | END 2019-03-03 08:55 | disposition home or self-care (01) | LOC: LAB.F 08:54 | PROVIDERS: ATTEND Physician Assistant Medical | DX: Z51.81 Encounter for therapeutic drug level monitoring (principal); Z79.01 Long term (current) use of anticoagulants | CPT/HCPCS: 85610 ==

== ENCOUNTER 2019-03-03 09:39 | Outpatient (CLI) | payer MEDICARE ==
[2019-03-03 18:20] LABS: ALBUMIN 4.1 g/dL (3.2-5.5); ALBUMIN/GLOBULIN RATIO 1.4 (1.0-2.2); CALCIUM 9.3 mg/dL (8.5-10.3); CREATININE 0.8 mg/dL (0.6-1.2)
== END 2019-03-03 09:40 | disposition home or self-care (01) ==
LOC: LAB.F 09:39
PROVIDERS: ATTEND Registered Nurse
DX: D53.9 Nutritional anemia, unspecified (principal); Z51.81 Encounter for therapeutic drug level monitoring; Z79.01 Long term (current) use of anticoagulants
CPT/HCPCS: 36415; 80053; 85610

== ENCOUNTER 2019-03-13 13:26 | Outpatient (CLI) | payer MEDICARE | END 2019-03-13 13:27 | disposition home or self-care (01) | LOC: LAB.F 13:26 | PROVIDERS: ATTEND Physician Assistant Medical | DX: Z79.01 Long term (current) use of anticoagulants (principal) | CPT/HCPCS: 85610 ==

== ENCOUNTER 2019-03-20 14:15 | Outpatient (CLI) | payer MEDICARE | END 2019-03-20 14:16 | disposition home or self-care (01) | LOC: LAB.S 14:15 | PROVIDERS: ATTEND Physician Assistant Medical | DX: Z51.81 Encounter for therapeutic drug level monitoring (principal); Z79.01 Long term (current) use of anticoagulants | CPT/HCPCS: 85610 ==

== ENCOUNTER 2019-03-30 10:40 | Outpatient (CLI) | payer MEDICARE | END 2019-03-30 10:41 | disposition home or self-care (01) | LOC: SC 10:40 | PROVIDERS: ATTEND Nurse Practitioner Family | DX: G47.33 Obstructive sleep apnea (adult) (pediatric) (principal) | CPT/HCPCS: 99214; G0463; 99212 ==

== ENCOUNTER 2019-03-31 13:43 | Outpatient (CLI) | payer MEDICARE | END 2019-03-31 13:44 | disposition home or self-care (01) | LOC: LAB.S 13:43 | PROVIDERS: ATTEND Physician Assistant Medical | DX: Z79.01 Long term (current) use of anticoagulants (principal) | CPT/HCPCS: 85610 ==

== ENCOUNTER 2019-04-17 | Outpatient (CLI) | payer MEDICARE | END 2019-04-17 15:03 | disposition home or self-care (01) ==

== ENCOUNTER 2019-04-24 13:43 | Outpatient (CLI) | payer MEDICARE | END 2019-04-24 13:44 | disposition home or self-care (01) | LOC: LAB.S 13:43 | PROVIDERS: ATTEND Physician Assistant Medical | DX: Z79.01 Long term (current) use of anticoagulants (principal) | CPT/HCPCS: 85610 ==

== ENCOUNTER 2019-05-11 13:15 | Outpatient (CLI) | payer MEDICARE | END 2019-05-11 13:16 | disposition home or self-care (01) | LOC: LAB.S 13:15 | PROVIDERS: ATTEND Physician Assistant Medical | DX: Z79.01 Long term (current) use of anticoagulants (principal) | CPT/HCPCS: 85610 ==

== ENCOUNTER 2019-05-29 15:11 | Outpatient (CLI) | payer MEDICARE | END 2019-05-29 15:12 | disposition home or self-care (01) | LOC: LAB.S 15:11 | PROVIDERS: ATTEND Physician Assistant Medical | DX: Z79.01 Long term (current) use of anticoagulants (principal) | CPT/HCPCS: 85610 ==

== ENCOUNTER 2019-06-01 12:59 | Outpatient (CLI) | payer MEDICARE | END 2019-06-01 13:00 | disposition home or self-care (01) | LOC: LAB.S 12:59 | PROVIDERS: ATTEND Physician Assistant Medical | DX: Z79.01 Long term (current) use of anticoagulants (principal) | CPT/HCPCS: 85610 ==

== ENCOUNTER 2019-06-08 11:29 | Outpatient (CLI) | payer MEDICARE | END 2019-06-08 11:30 | disposition home or self-care (01) | LOC: LAB.S 11:29 | PROVIDERS: ATTEND Physician Assistant Medical | DX: Z51.81 Encounter for therapeutic drug level monitoring (principal); Z79.01 Long term (current) use of anticoagulants | CPT/HCPCS: 85610 ==

== ENCOUNTER 2019-06-16 14:07 | Outpatient (CLI) | payer MEDICARE | END 2019-06-16 14:08 | disposition home or self-care (01) | LOC: LAB.S 14:07 | PROVIDERS: ATTEND Physician Assistant Medical | DX: Z51.81 Encounter for therapeutic drug level monitoring (principal); Z79.01 Long term (current) use of anticoagulants | CPT/HCPCS: 85610 ==

== ENCOUNTER 2019-06-25 10:32 | Outpatient (CLI) | payer MEDICARE | END 2019-06-25 10:33 | disposition home or self-care (01) | LOC: LAB.S 10:32 | PROVIDERS: ATTEND Physician Assistant Medical | DX: Z79.01 Long term (current) use of anticoagulants (principal) | CPT/HCPCS: 85610 ==

== ENCOUNTER 2019-07-03 12:15 | Outpatient (CLI) | payer MEDICARE | END 2019-07-03 23:59 | disposition home or self-care (01) | LOC: LAB.S 12:15 | PROVIDERS: ATTEND Physician Assistant Medical | DX: Z79.01 Long term (current) use of anticoagulants (principal) | CPT/HCPCS: 85610 ==

== ENCOUNTER 2019-07-13 11:42 | Outpatient (CLI) | payer MEDICARE | END 2019-07-13 11:43 | disposition home or self-care (01) | LOC: LAB.S 11:42 | PROVIDERS: ATTEND Physician Assistant Medical | DX: Z79.01 Long term (current) use of anticoagulants (principal) | CPT/HCPCS: 85610 ==

== ENCOUNTER 2019-07-23 13:37 | Outpatient (CLI) | payer MEDICARE | END 2019-07-23 13:38 | disposition home or self-care (01) | LOC: LAB.S 13:37 | PROVIDERS: ATTEND Physician Assistant Medical | DX: Z79.01 Long term (current) use of anticoagulants (principal) | CPT/HCPCS: 85610 ==

== ENCOUNTER 2019-07-31 15:25 | Outpatient (CLI) | payer MEDICARE | END 2019-07-31 15:26 | disposition home or self-care (01) | LOC: LAB.S 15:25 | PROVIDERS: ATTEND Physician Assistant Medical | DX: Z79.01 Long term (current) use of anticoagulants (principal) | CPT/HCPCS: 85610 ==

== ENCOUNTER 2019-08-10 13:15 | Outpatient (CLI) | payer MEDICARE | END 2019-08-10 13:16 | disposition home or self-care (01) | LOC: LAB.S 13:15 | PROVIDERS: ATTEND Physician Assistant Medical | DX: Z79.01 Long term (current) use of anticoagulants (principal) | CPT/HCPCS: 85610 ==

== ENCOUNTER 2019-08-20 13:57 | Outpatient (CLI) | payer MEDICARE | END 2019-08-20 13:58 | disposition home or self-care (01) | LOC: LAB.S 13:57 | PROVIDERS: ATTEND Physician Assistant Medical | DX: Z79.01 Long term (current) use of anticoagulants (principal) | CPT/HCPCS: 85610 ==

== ENCOUNTER 2019-09-01 11:06 | Outpatient (CLI) | payer MEDICARE | END 2019-09-01 11:07 | disposition home or self-care (01) | LOC: LAB.S 11:06 | PROVIDERS: ATTEND Physician Assistant Medical | DX: Z79.01 Long term (current) use of anticoagulants (principal) | CPT/HCPCS: 85610 ==

== ENCOUNTER 2019-09-28 09:49 | Outpatient (CLI) | payer MEDICARE | END 2019-09-28 09:50 | disposition home or self-care (01) | LOC: LAB.S 09:49 | PROVIDERS: ATTEND Physician Assistant Medical | DX: Z79.01 Long term (current) use of anticoagulants (principal) | CPT/HCPCS: 85610 ==

== ENCOUNTER 2019-10-06 10:44 | Outpatient (CLI) | payer MEDICARE ==
[2019-10-06 17:50] LABS: BASOPHILS % (AUTO) 0.5 %; EOSINOPHILS # (AUTO) 0.1 10^3/uL (0.0-0.7); EOSINOPHILS % (AUTO) 1.9 %; HGB - HEMOGLOBIN 12.2 g/dL (14.0-18.0); LYMPHOCYTES # (AUTO) 0.9 10^3/uL (1.5-3.5); LYMPHOCYTES % (AUTO) 15.4 %; MEAN CORPUSCULAR HEMOGLOBIN 30.5 pg (27.0-31.0); MEAN CORPUSCULAR HGB CONC 31.6 g/dL (32.0-36.0); MEAN CORPUSCULAR VOLUME 96.5 fL (80.0-94.0); MEAN PLATELET VOLUME 9.6 fL (7.4-11.4); MONOCYTES # (AUTO) 0.5 10^3/uL (0.0-1.0); NEUTROPHILS # (AUTO) 4.1 10^3/uL (1.5-6.6); PLT - PLATELET COUNT 276 10^3/uL (130-450); RED CELL DISTRIBUTION WIDTH 14.6 % (12.0-15.0); WHITE BLOOD COUNT 5.7 x10^3/uL (4.8-10.8)
[2019-10-06 18:01] LABS: INR 2.9 (0.8-1.2); PT - PROTHROMBIN TIME 31.1 secs (9.9-12.6)
[2019-10-06 18:03] LABS: CALCIUM 9.7 mg/dL (8.5-10.3); CREATININE 0.8 mg/dL (0.6-1.2)
== END 2019-10-06 10:45 | disposition home or self-care (01) ==
LOC: LAB.S 10:44
PROVIDERS: ATTEND Physician Assistant Medical
DX: Z01.812 Encounter for preprocedural laboratory examination (principal); Z79.01 Long term (current) use of anticoagulants
CPT/HCPCS: 36415; 80048; 85025; 85610

== ENCOUNTER 2019-10-26 09:48 | Outpatient (CLI) | payer MEDICARE | END 2019-10-26 09:49 | disposition home or self-care (01) | LOC: LAB.S 09:48 | PROVIDERS: ATTEND Physician Assistant Medical | DX: Z79.01 Long term (current) use of anticoagulants (principal) | CPT/HCPCS: 85610 ==

== ENCOUNTER 2019-11-03 09:41 | Outpatient (CLI) | payer MEDICARE | END 2019-11-03 09:42 | disposition home or self-care (01) | LOC: LAB.S 09:41 | PROVIDERS: ATTEND Physician Assistant Medical | DX: Z79.01 Long term (current) use of anticoagulants (principal) | CPT/HCPCS: 85610 ==

== ENCOUNTER 2019-11-10 13:09 | Outpatient (CLI) | payer MEDICARE | END 2019-11-10 13:10 | disposition home or self-care (01) | LOC: LAB.S 13:09 | PROVIDERS: ATTEND Physician Assistant Medical | DX: Z79.01 Long term (current) use of anticoagulants (principal) | CPT/HCPCS: 85610 ==

== ENCOUNTER 2019-11-17 15:12 | Outpatient (CLI) | payer MEDICARE | END 2019-11-17 15:13 | disposition home or self-care (01) | LOC: LAB.S 15:12 | PROVIDERS: ATTEND Physician Assistant Medical | DX: Z79.01 Long term (current) use of anticoagulants (principal) | CPT/HCPCS: 85610 ==

== ENCOUNTER 2019-11-24 10:25 | Outpatient (CLI) | payer MEDICARE ==
[2019-11-24 11:04] LABS: BASOPHILS % (AUTO) 0.5 %; EOSINOPHILS # (AUTO) 0.1 10^3/uL (0.0-0.7); EOSINOPHILS % (AUTO) 0.9 %; HGB - HEMOGLOBIN 11.7 g/dL (14.0-18.0); LYMPHOCYTES # (AUTO) 0.8 10^3/uL (1.5-3.5); MEAN CORPUSCULAR HEMOGLOBIN 30.7 pg (27.0-31.0); MEAN CORPUSCULAR HGB CONC 33.4 g/dL (32.0-36.0); MEAN CORPUSCULAR VOLUME 91.9 fL (80.0-94.0); MEAN PLATELET VOLUME 8.1 fL (7.4-11.4); MONOCYTES # (AUTO) 0.6 10^3/uL (0.0-1.0); MONOCYTES % (AUTO) 8.1 %; NEUTROPHILS # (AUTO) 6.1 10^3/uL (1.5-6.6); NEUTROPHILS % (AUTO) 80.1 %; PLT - PLATELET COUNT 279 10^3/uL (130-450); RED BLOOD COUNT 3.81 10^6/uL (4.70-6.10); RED CELL DISTRIBUTION WIDTH 13.5 % (12.0-15.0); WHITE BLOOD COUNT 7.7 x10^3/uL (4.8-10.8)
[2019-11-24 11:28] LABS: ALBUMIN 4.1 g/dL (3.2-5.5); ALBUMIN/GLOBULIN RATIO 1.5 (1.0-2.2); BILIRUBIN,TOTAL 0.8 mg/dL (0.2-1.0); CALCIUM 9.5 mg/dL (8.5-10.3); CREATININE 0.8 mg/dL (0.6-1.2); TOTAL PROTEIN 6.8 g/dL (6.7-8.2)
--- NOTE | 2019-11-25 04:26 | XRAY Report ---
Reason: NECK PAIN Procedure Date: 11/24/2019 Accession Number: [id number] / [id number] Procedure: XR - Cervical Spine Complete CPT Code: Final Report FULL RESULT: EXAM: CERVICAL SPINE RADIOGRAPHY EXAM DATE: 11/24/2019 11:22 AM. CLINICAL HISTORY: NECK PAIN. COMPARISONS: None. TECHNIQUE: 5 views. FINDINGS: Alignment: Minimal anterolisthesis is visualized at C3 on C4. Bones: The cervical vertebral bodies and posterior elements are well-visualized from the skull base through C7-T1. There is no evidence of acute fracture. Osteopenia is suspected. Disks: Moderate disk height loss is visualized at C5-C6 and C6-C7. Mild disk height loss is noted elsewhere throughout the cervical spine. Facets: There is significant multilevel facet arthropathy most pronounced on the right at C4-C5 and on the left at C3-C4. Neural Foramina: Uncovertebral and facet hypertrophy produce moderate left foraminal stenosis at C3-C4, C4-C5 and C5-C6. There is moderate right foraminal narrowing at C3-C4. Mild foraminal narrowing is noted on the right at C4-C5 and bilaterally at C6-C7. Soft Tissues: Normal. No prevertebral soft tissue swelling. The visualized lung apices are clear. IMPRESSION: 1. No evidence of acute pathology in the cervical spine. 2. Moderate multilevel cervical spondylosis including significant mid and upper facet arthropathy, as described above. 3. Multilevel foraminal stenosis, most pronounced on the right at C3-C4 and on the left at C3-C4, C4-C5 and C5-C6. [facility]
== END 2019-11-24 10:26 | disposition home or self-care (01) ==
LOC: LAB 10:25 → DI 10:26
PROVIDERS: ATTEND Family Medicine
DX: M50.31 Other cervical disc degeneration, high cervical region (principal); M48.02 Spinal stenosis, cervical region; M47.812 Spondylosis without myelopathy or radiculopathy, cervical region; M43.12 Spondylolisthesis, cervical region
CPT/HCPCS: 36415; 72050; 80053; 85025; 85651

== ENCOUNTER 2019-12-01 09:44 | Outpatient (CLI) | payer MEDICARE | END 2019-12-01 09:45 | disposition home or self-care (01) | LOC: LAB.S 09:44 | PROVIDERS: ATTEND Physician Assistant Medical | DX: Z79.01 Long term (current) use of anticoagulants (principal) | CPT/HCPCS: 85610 ==

== ENCOUNTER 2020-01-20 09:33 | Outpatient (CLI) | payer MEDICARE | END 2020-01-20 09:34 | disposition home or self-care (01) | LOC: LAB 09:33 | PROVIDERS: ATTEND Registered Nurse | DX: Z79.01 Long term (current) use of anticoagulants (principal) | CPT/HCPCS: 85610 ==

== ENCOUNTER 2020-01-21 08:00 | Outpatient (CLI) | payer MEDICARE | END 2020-01-21 23:59 | disposition home or self-care (01) | LOC: LAB.WCP 08:00 | PROVIDERS: ATTEND Registered Nurse | DX: I48.0 Paroxysmal atrial fibrillation (principal); Z79.01 Long term (current) use of anticoagulants ==

== ENCOUNTER 2020-02-16 12:19 | Outpatient (CLI) | payer MEDICARE | END 2020-02-16 12:20 | disposition home or self-care (01) | LOC: LAB.S 12:19 | PROVIDERS: ATTEND Registered Nurse | DX: Z79.01 Long term (current) use of anticoagulants (principal) | CPT/HCPCS: 85610 ==

== ENCOUNTER 2020-03-02 11:31 | Outpatient (CLI) | payer MEDICARE | END 2020-03-02 11:32 | disposition home or self-care (01) | LOC: LAB.S 11:31 | PROVIDERS: ATTEND Registered Nurse | DX: Z79.01 Long term (current) use of anticoagulants (principal) | CPT/HCPCS: 85610 ==

== ENCOUNTER 2020-04-06 11:34 | Outpatient (CLI) | payer MEDICARE | END 2020-04-06 11:35 | disposition home or self-care (01) | LOC: LAB.S 11:34 | PROVIDERS: ATTEND Registered Nurse | DX: Z79.01 Long term (current) use of anticoagulants (principal) | CPT/HCPCS: 85610 ==

== ENCOUNTER 2020-05-09 12:08 | Outpatient (CLI) | payer MEDICARE | END 2020-05-09 12:09 | disposition home or self-care (01) | LOC: LAB.S 12:08 | PROVIDERS: ATTEND Registered Nurse | DX: Z79.01 Long term (current) use of anticoagulants (principal) | CPT/HCPCS: 85610 ==

== ENCOUNTER 2020-05-10 08:00 | Outpatient (CLI) | payer MEDICARE | END 2020-05-10 23:59 | disposition home or self-care (01) | LOC: LAB.WCP 08:00 | PROVIDERS: ATTEND Registered Nurse | DX: I48.0 Paroxysmal atrial fibrillation (principal); Z79.01 Long term (current) use of anticoagulants ==

== ENCOUNTER 2020-05-11 09:04 | Emergency (ER) | payer MEDICARE ==
--- NOTE | 2020-05-11 09:33 | ED Physician Documentation ---
PD HPI DYSPNEA - Stated complaint Stated Complaint: AFIB - Chief complaint Chief Complaint: Cardiac - History obtained from History obtained from: Patient - History of Present Illness Timing - onset: How many weeks ago (1) Timing - onset during: Exertion Timing - duration: Weeks (1) Timing - details: Gradual onset, Still present, Waxing and waning Inciting event(s): Other (afib) Improved by: Rest Worsened by: Exertion Associated symptoms: No: Fever, Cough, Hemoptysis, Wheezing, Chest pain / discomfort, Palpitations, Diaphoresis, Bilateral edema, Unilateral edema, Anxiety Similar symptoms before: Diagnosis (afib) Recently seen: Clinic, Other - Additional information Additional information: 79-year-old male with a history of hypertension and hyperlipidemia has atrial fibrillation and is on Coumadin. He is sent to the emergency department from the [facility] where he is doing cardiac rehabilitation and he is sent here because he has rapid A. fib and low blood pressure. Patient reports that over the past week he has been having exertional dyspnea different from his usual. The lites and her notes indicate that the patient usually is in sinus rhythm and showed up this week with atrial fibrillation. The patient reports that last year he was sent to [place] where he had cardioversion done. Review of Systems Constitutional: denies: Fever Eyes: denies: Decreased vision Ears: denies: Ear pain Nose: denies: Congestion Throat: denies: Sore throat Cardiac: reports: Palpitations. denies: Chest pain / pressure, Pedal edema, Calf pain Respiratory: reports: Dyspnea. denies: Cough, Wheezing GI: denies: Abdominal Pain, Nausea, Vomiting : denies: Dysuria, Frequency Skin: denies: Rash Musculoskeletal: denies: Neck pain, Back pain, Extremity pain Neurologic: denies: Generalized weakness, Focal weakness, Numbness PD PAST MEDICAL HISTORY - Past Medical History Cardiovascular: Atrial fibrillation Respiratory: None Endocrine/Autoimmune: None : Renal insuffiency - Past Surgical History Past Surgical History: Yes Ortho: Other - Present Medications Home Medications: Ambulatory Orders Medication Instructions Recorded Confirmed Atorvastatin [Lipitor] 10 mg PO DAILY 11/01/17 11/01/17 Diltiazem HCl [Dilt-Xr] 360 mg PO DAILY 11/01/17 11/01/17 Warfarin Sodium 10 mg PO DAILY 11/01/17 11/01/17 hydroCHLOROthiazide 25 mg PO DAILY 11/01/17 11/01/17 [Hydrochlorothiazide] - Allergies Allergies/Adverse Reactions: Allergies Allergy/AdvReac Type Severity Reaction Status Date / Time No Known Drug Allergies Allergy Verified 05/11/20 09:21 - Social History Does the pt smoke?: No Smoking Status: Never smoker Does the pt drink ETOH?: No Does the pt have substance abuse?: No - Immunizations Immunizations are current?: Yes PD ED PE NORMAL - Vitals Vital signs reviewed: Yes (tachy ) - General General: Alert and oriented X 3, No acute distress, Well developed/nourished - HEENT HEENT: Atraumatic, PERRL, EOMI - Neck Neck: Supple, no meningeal sign, No bony TTP - Cardiac Cardiac: No murmur, Other (rapid irregular heart rate) - Respiratory Respiratory: No respiratory distress, Clear bilaterally - Abdomen Abdomen: Soft, Non tender, No organomegaly - Back Back: No CVA TTP, No spinal TTP - Derm Derm: Normal color, Warm and dry, No rash - Extremities Extremities: No deformity, No edema, No calf tenderness / cord - Neuro Neuro: Alert and oriented X 3, insurance coder 2-12 intact, No motor deficit, No sensory deficit, Normal speech Eye Opening: Spontaneous Motor: Obeys Commands Verbal: Oriented GCS Score: 15 - Psych Psych: Normal mood, Normal affect Results - Vitals Vitals: Vital Signs - 24 hr 05/11/20 05/11/20 05/11/20 09:17 09:41 09:51 Temperature 36.8 C 36.6 C Heart Rate 104 H 92 91 Respiratory 16 18 16 Rate Blood Pressure 124/80 100/56 L 91/47 L O2 Saturation 99 98 97 05/11/20 05/11/20 05/11/20 10:21 10:30 11:00 Temperature Heart Rate 90 81 87 Respiratory 16 12 15 Rate Blood Pressure 109/67 98/53 L 97/60 O2 Saturation 97 97 100 05/11/20 05/11/20 05/11/20 11:30 11:59 12:30 Temperature Heart Rate 87 90 86 Respiratory 12 15 15 Rate Blood Pressure 109/61 115/68 110/58 L O2 Saturation 100 100 99 05/11/20 13:00 Temperature Heart Rate 99 Respiratory 15 Rate Blood Pressure 114/89 H O2 Saturation 98 Oxygen O2 Source Room air - EKG (time done) 0910 Rate: Rate (enter#) (90) Rhythm: Atrial fibrillation Intervals: RBBB Compare to prior EKG: Changed from prior EKG (SPT 12-23-2017 rate is slower) Computer interpretation: Agree with computer - Labs Labs: Laboratory Tests 05/11/20 05/11/20 05/11/20 09:32 09:32 09:32 WBC 5.7 RBC 3.22 L Hgb 10.0 L Hct 29.1 L MCV 90.4 MCH 31.1 H MCHC 34.4 RDW 14.8 Plt Count 308 MPV 8.3 Neut # (Auto) 4.5 Lymph # (Auto) 0.5 L [place] # (Auto) 0.5 Eos # (Auto) 0.1 Baso # (Auto) 0.0 Absolute Nucleated RBC 0.00 Nucleated RBC % 0.0 Whole Blood INR Sodium 126 L Potassium 3.8 Chloride 94 L Carbon Dioxide 25 Anion Gap 7.0 BUN 17 Creatinine 1.1 Estimated GFR (MDRD) 64 L Glucose 135 H Calcium 8.4 L Total Bilirubin 0.9 AST 22 ALT 24 Alkaline Phosphatase 54 Troponin I High Sens 4.4 B-Natriuretic Peptide Total Protein 6.1 L Albumin 3.6 Globulin 2.5 Albumin/Globulin Ratio 1.4 Lipase 29 05/11/20 05/11/20 09:32 11:55 WBC RBC Hgb Hct MCV MCH MCHC RDW Plt Count MPV Neut # (Auto) Lymph # (Auto) [place] # (Auto) Eos # (Auto) Baso # (Auto) Absolute Nucleated RBC Nucleated RBC % Whole Blood INR 2.9 H Sodium Potassium Chloride Carbon Dioxide Anion Gap BUN Creatinine Estimated GFR (MDRD) Glucose Calcium Total Bilirubin AST ALT Alkaline Phosphatase Troponin I High Sens B-Natriuretic Peptide 222 H Total Protein Albumin Globulin Albumin/Globulin Ratio Lipase - Rads (name of study) chest Radiology: Prelim report reviewed (Impression: No acute cardiopulmonary process demonstrated radiographically.), EMP read indepedently, See rad report Procedures - IVC sono (time) 0924 Bedside IVC sono: IVC measures (cm) (1.57), IVC collapsed c insp (cm) (complete), Dehydration (mild est 500ml deficit) PD MEDICAL DECISION MAKING - ED course Complexity details: reviewed old records, reviewed results, re-evaluated patient, considered differential, d/w patient ED course: Old male who comes to the emergency department from the [facility] where he is doing cardiac rehab and he has had rapid heart rate with atrial fibrillation and they have sent him here for evaluation. He did complete his exercise 2 days ago with the rapid heart rate and today his blood pressure was soft and they sent him here to the emergency department for evaluation. He has usually been in sinus rhythm and runs heart rate in the 70s and 80s. We did find the patient to have a decreased hematocrit and his INR is 2.9 and we tested his fecal occult blood and this was negative. Departure - Departure Disposition: 01 Home, Self Care Clinical Impression: Atrial fibrillation with rapid ventricular response, Dehydration Condition: Stable Instructions: ED Dehydration, ED Afib Follow-Up: Darby Estrada PA-C [Primary Care Provider] -
[2020-05-11] MEDS: SODIUM CHLORIDE 0.9% 500 ML IV STA (09:40)
[2020-05-11 09:49] LABS: BASOPHILS % (AUTO) 0.5 %; EOSINOPHILS # (AUTO) 0.1 10^3/uL (0.0-0.7); EOSINOPHILS % (AUTO) 2.1 %; LYMPHOCYTES # (AUTO) 0.5 10^3/uL (1.5-3.5); LYMPHOCYTES % (AUTO) 8.6 %; MEAN CORPUSCULAR HEMOGLOBIN 31.1 pg (27.0-31.0); MEAN CORPUSCULAR HGB CONC 34.4 g/dL (32.0-36.0); MEAN CORPUSCULAR VOLUME 90.4 fL (80.0-94.0); MEAN PLATELET VOLUME 8.3 fL (7.4-11.4); MONOCYTES # (AUTO) 0.5 10^3/uL (0.0-1.0); MONOCYTES % (AUTO) 9.1 %; NEUTROPHILS # (AUTO) 4.5 10^3/uL (1.5-6.6); NEUTROPHILS % (AUTO) 79.2 %; PLT - PLATELET COUNT 308 10^3/uL (130-450); RED BLOOD COUNT 3.22 10^6/uL (4.70-6.10); RED CELL DISTRIBUTION WIDTH 14.8 % (12.0-15.0); WHITE BLOOD COUNT 5.7 x10^3/uL (4.8-10.8)
--- NOTE | 2020-05-11 10:02 | XRAY Report ---
PROCEDURE: Chest 1 View X-Ray INDICATIONS: Chest pain TECHNIQUE: One view of the chest was acquired. COMPARISON: 12/23/2017 FINDINGS: Surgical changes and devices: None. Lungs and pleura: No pleural effusions or pneumothorax. Lungs are clear. Mediastinum: Mediastinal contours appear normal. Heart size is normal. Bones and chest wall: No suspicious bony lesions. Overlying soft tissues appear unremarkable. IMPRESSION: No acute cardiopulmonary process demonstrated radiographically. Reviewed by: Jamin Cho MD on 05/11/2020 10:00 AM PDT Approved by: Jamin Cho MD on 05/11/2020 10:00 AM PDT Station ID: [id number]
[2020-05-11 10:11] LABS: ALBUMIN 3.6 g/dL (3.2-5.5); ALBUMIN/GLOBULIN RATIO 1.4 (1.0-2.2); BILIRUBIN,TOTAL 0.9 mg/dL (0.2-1.0); CALCIUM 8.4 mg/dL (8.5-10.3); CREATININE 1.1 mg/dL (0.6-1.2); TOTAL PROTEIN 6.1 g/dL (6.7-8.2)
[2020-05-11] MEDS: DILTIAZEM 50 MG/10 ML VIAL IVP ONE (10:39)
[2020-05-11 13:39] VITALS: BP 127/84
== END 2020-05-11 14:00 | disposition home or self-care (01) ==
LOC: ED 09:04
DX: I48.20 Chronic atrial fibrillation, unspecified (principal); Z79.01 Long term (current) use of anticoagulants; E86.0 Dehydration; R06.09 Other forms of dyspnea; R79.1 Abnormal coagulation profile; I45.10 Unspecified right bundle-branch block; I10 Essential (primary) hypertension; E78.5 Hyperlipidemia, unspecified
CPT/HCPCS: 36415; 71045; 80053; 82272; 83690; 83880; 84484; 85025; 85610; 93005; 96360; 99284

== ENCOUNTER 2020-06-16 12:02 | Outpatient (CLI) | payer MEDICARE | END 2020-06-16 12:03 | disposition home or self-care (01) | LOC: LAB.S 12:02 | PROVIDERS: ATTEND Registered Nurse | DX: Z79.01 Long term (current) use of anticoagulants (principal) | CPT/HCPCS: 85610 ==

== ENCOUNTER 2020-06-30 14:56 | Outpatient (CLI) | payer MEDICARE | END 2020-06-30 14:57 | disposition home or self-care (01) | LOC: LAB.S 14:56 | PROVIDERS: ATTEND Registered Nurse | DX: Z79.01 Long term (current) use of anticoagulants (principal) | CPT/HCPCS: 85610 ==

== ENCOUNTER 2020-07-26 10:30 | Outpatient (CLI) | payer MEDICARE | END 2020-07-26 10:31 | disposition home or self-care (01) | LOC: LAB.S 10:30 | PROVIDERS: ATTEND Registered Nurse | DX: Z79.01 Long term (current) use of anticoagulants (principal) | CPT/HCPCS: 85610 ==

== ENCOUNTER 2020-08-16 14:08 | Outpatient (CLI) | payer MEDICARE | END 2020-08-16 14:09 | disposition home or self-care (01) | LOC: LAB.S 14:08 | PROVIDERS: ATTEND Registered Nurse | DX: Z79.01 Long term (current) use of anticoagulants (principal) | CPT/HCPCS: 85610 ==

== ENCOUNTER 2020-08-31 10:59 | Outpatient (CLI) | payer MEDICARE | END 2020-08-31 11:00 | disposition home or self-care (01) | LOC: LAB.S 10:59 | PROVIDERS: ATTEND Registered Nurse | DX: Z79.01 Long term (current) use of anticoagulants (principal) | CPT/HCPCS: 85610 ==

== ENCOUNTER 2020-09-21 13:10 | Outpatient (CLI) | payer MEDICARE | END 2020-09-21 13:11 | disposition home or self-care (01) | LOC: LAB.S 13:10 | PROVIDERS: ATTEND Registered Nurse | DX: Z79.01 Long term (current) use of anticoagulants (principal) | CPT/HCPCS: 85610 ==

== ENCOUNTER 2020-09-26 09:23 | Outpatient (CLI) | payer MEDICARE | END 2020-09-26 09:24 | disposition home or self-care (01) | LOC: LAB.S 09:23 | PROVIDERS: ATTEND Registered Nurse | DX: Z79.01 Long term (current) use of anticoagulants (principal) | CPT/HCPCS: 85610 ==

== ENCOUNTER 2020-10-11 08:00 | Outpatient (CLI) | payer MEDICARE | END 2020-10-11 23:59 | disposition home or self-care (01) | LOC: LAB.F 08:00 | PROVIDERS: ATTEND Registered Nurse | DX: Z79.01 Long term (current) use of anticoagulants (principal) ==

== ENCOUNTER 2020-10-18 08:00 | Outpatient (CLI) | payer MEDICARE | END 2020-10-18 23:59 | disposition home or self-care (01) | LOC: LAB.F 08:00 | PROVIDERS: ATTEND Registered Nurse | DX: Z79.01 Long term (current) use of anticoagulants (principal) ==

== ENCOUNTER 2020-10-25 08:00 | Outpatient (CLI) | payer MEDICARE | END 2020-10-25 23:59 | disposition home or self-care (01) | LOC: LAB.F 08:00 | PROVIDERS: ATTEND Registered Nurse | DX: Z79.01 Long term (current) use of anticoagulants (principal) ==

== ENCOUNTER 2020-11-01 10:11 | Outpatient (CLI) | payer MEDICARE | END 2020-11-01 10:12 | disposition home or self-care (01) | LOC: LAB.S 10:11 | PROVIDERS: ATTEND Registered Nurse | DX: Z79.01 Long term (current) use of anticoagulants (principal) | CPT/HCPCS: 85610 ==

== ENCOUNTER 2020-11-05 10:07 | Outpatient (CLI) | payer MEDICARE ==
[2020-11-05 14:57] LABS: BASOPHILS % (AUTO) 0.8 %; EOSINOPHILS # (AUTO) 0.1 10^3/uL (0.0-0.7); EOSINOPHILS % (AUTO) 1.9 %; LYMPHOCYTES # (AUTO) 0.6 10^3/uL (1.5-3.5); LYMPHOCYTES % (AUTO) 12.5 %; MEAN CORPUSCULAR HEMOGLOBIN 30.4 pg (27.0-31.0); MEAN CORPUSCULAR HGB CONC 33.5 g/dL (32.0-36.0); MEAN CORPUSCULAR VOLUME 90.6 fL (80.0-94.0); MONOCYTES # (AUTO) 0.6 10^3/uL (0.0-1.0); MONOCYTES % (AUTO) 10.7 %; NEUTROPHILS # (AUTO) 3.8 10^3/uL (1.5-6.6); NEUTROPHILS % (AUTO) 73.7 %; PLT - PLATELET COUNT 275 10^3/uL (130-450); RED BLOOD COUNT 3.62 10^6/uL (4.70-6.10); RED CELL DISTRIBUTION WIDTH 15.9 % (12.0-15.0); WHITE BLOOD COUNT 5.1 x10^3/uL (4.8-10.8)
[2020-11-05 15:24] LABS: ALBUMIN 3.9 g/dL (3.2-5.5); ALBUMIN/GLOBULIN RATIO 1.6 (1.0-2.2); ALKALINE PHOSPHATASE 82 IU/L (42-121); ALT ALANINE AMINOTRANSFERASE 22 IU/L (10-60); AST ASPARTATE AMINOTRANSFERASE 21 IU/L (10-42); BILIRUBIN,TOTAL 0.6 mg/dL (0.2-1.0); BUN - BLOOD UREA NITROGEN 18 mg/dL (6-20); CALCIUM 8.9 mg/dL (8.5-10.3); CARBON DIOXIDE - CO2 25 mmol/L (21-32); CHLORIDE 97 mmol/L (101-111); CHOL/HDL RATIO 2.4 (<5.0); CHOLESTEROL 154 mg/dL; CREATININE 0.8 mg/dL (0.6-1.2); GLUCOSE 96 mg/dL (70-100); HDL CHOLESTEROL 63 mg/dL; LDL CHOLESTEROL,CALCULATED 79 mg/dL; LDL/HDL RATIO 1.3 (<3.6); TOTAL PROTEIN 6.4 g/dL (6.7-8.2); VLDL CHOLESTEROL 12 mg/dL
--- NOTE | 2020-11-06 17:58 | XRAY Report ---
PROCEDURE: Abdomen 2 View X-Ray INDICATIONS: FREQUENT FALLS, ABD PX TECHNIQUE: 2 views of the abdomen were acquired. COMPARISON: None FINDINGS: Surgical changes and devices: None. Bowel: No pneumoperitoneum. The bowel gas pattern is normal. There is a moderate amount of stool s een within the colon. Soft tissues: No masses; visualized solid organ contours appear normal in size. No suspicious abdom inal calcifications. Note is made of pelvic phleboliths. Bones: No suspicious bony abnormalities. Age-appropriate degenerative changes are seen, including i nvolving the lumbar spine and both hips. IMPRESSION: There is a moderate amount of stool seen within the colon. Please correlate with clinica l constipation. No acute bony abnormality is seen. Reviewed by: Cristóbal Lovelace MD on 11/06/2020 4:57 PM [facility] Approved by: Cristóbal Lovelace MD on 11/06/2020 4:57 PM [facility] Station ID: [id number]
== END 2020-11-05 10:08 | disposition home or self-care (01) ==
LOC: DI.S 10:07
PROVIDERS: ATTEND Registered Nurse
DX: R10.9 Unspecified abdominal pain (principal); E87.1 Hypo-osmolality and hyponatremia; E78.5 Hyperlipidemia, unspecified; R29.6 Repeated falls
CPT/HCPCS: 36415; 80053; 80061; 83721; 85025

== ENCOUNTER 2020-11-08 15:17 | Outpatient (CLI) | payer MEDICARE | END 2020-11-08 15:18 | disposition home or self-care (01) | LOC: LAB.S 15:17 | PROVIDERS: ATTEND Registered Nurse | DX: Z79.01 Long term (current) use of anticoagulants (principal); R10.9 Unspecified abdominal pain | CPT/HCPCS: 82274; 85610 ==

== ENCOUNTER 2020-11-10 07:00 | Outpatient (CLI) | payer MEDICARE | END 2020-11-10 23:59 | disposition home or self-care (01) | LOC: LAB.R 07:00 | PROVIDERS: ATTEND Registered Nurse | DX: R10.9 Unspecified abdominal pain (principal) | CPT/HCPCS: 82270 ==

== ENCOUNTER 2020-11-15 10:18 | Outpatient (CLI) | payer MEDICARE | END 2020-11-15 10:19 | disposition home or self-care (01) | LOC: LAB.S 10:18 | PROVIDERS: ATTEND Registered Nurse | DX: Z79.01 Long term (current) use of anticoagulants (principal) | CPT/HCPCS: 85610 ==

== ENCOUNTER 2020-11-28 15:03 | Outpatient (CLI) | payer MEDICARE | END 2020-11-28 15:04 | disposition home or self-care (01) | LOC: LAB.S 15:03 | PROVIDERS: ATTEND Registered Nurse | DX: Z79.01 Long term (current) use of anticoagulants (principal) | CPT/HCPCS: 85610 ==

== ENCOUNTER 2020-12-15 16:20 | Outpatient (CLI) | payer MEDICARE | END 2020-12-15 16:21 | disposition home or self-care (01) | LOC: LAB.S 16:20 | PROVIDERS: ATTEND Registered Nurse | DX: Z79.01 Long term (current) use of anticoagulants (principal) | CPT/HCPCS: 85610 ==

== ENCOUNTER 2021-01-03 11:48 | Outpatient (CLI) | payer MEDICARE | END 2021-01-03 11:49 | disposition home or self-care (01) | LOC: LAB.S 11:48 | PROVIDERS: ATTEND Registered Nurse | DX: Z79.01 Long term (current) use of anticoagulants (principal) | CPT/HCPCS: 85610 ==

== ENCOUNTER 2021-01-24 13:13 | Outpatient (CLI) | payer MEDICARE | END 2021-01-24 13:14 | disposition home or self-care (01) | LOC: LAB.S 13:13 | PROVIDERS: ATTEND Registered Nurse | DX: Z79.01 Long term (current) use of anticoagulants (principal) | CPT/HCPCS: 36416; 85610 ==

== ENCOUNTER 2021-02-09 13:32 | Outpatient (CLI) | payer MEDICARE, OTHER | END 2021-02-09 13:33 | disposition home or self-care (01) | LOC: LAB.S 13:32 | PROVIDERS: ATTEND Registered Nurse | DX: Z79.01 Long term (current) use of anticoagulants (principal) | CPT/HCPCS: 36416; 85610 ==

== ENCOUNTER 2021-03-02 13:34 | Outpatient (CLI) | payer MEDICARE, OTHER | END 2021-03-02 13:35 | disposition home or self-care (01) | LOC: LAB.S 13:34 | PROVIDERS: ATTEND Registered Nurse | DX: Z79.01 Long term (current) use of anticoagulants (principal) | CPT/HCPCS: 36416; 85610 ==

== ENCOUNTER 2021-03-13 08:33 | Outpatient (CLI) | payer MEDICARE, OTHER | END 2021-03-13 08:34 | disposition home or self-care (01) | LOC: LAB.S 08:33 | PROVIDERS: ATTEND Registered Nurse | DX: Z79.01 Long term (current) use of anticoagulants (principal) | CPT/HCPCS: 36416; 85610 ==

== ENCOUNTER 2021-03-23 10:23 | Outpatient (CLI) | payer MEDICARE, OTHER | END 2021-03-23 10:24 | disposition home or self-care (01) | LOC: LAB.S 10:23 | PROVIDERS: ATTEND Registered Nurse | DX: Z79.01 Long term (current) use of anticoagulants (principal) | CPT/HCPCS: 36416; 85610 ==

== ENCOUNTER 2021-04-05 13:41 | Outpatient (CLI) | payer MEDICARE, OTHER | END 2021-04-05 13:42 | disposition home or self-care (01) | LOC: LAB.S 13:41 | PROVIDERS: ATTEND Registered Nurse | DX: Z79.01 Long term (current) use of anticoagulants (principal) | CPT/HCPCS: 36416; 85610 ==

== ENCOUNTER 2021-04-26 11:24 | Outpatient (CLI) | payer MEDICARE, OTHER | END 2021-04-26 11:25 | disposition home or self-care (01) | LOC: LAB.S 11:24 | PROVIDERS: ATTEND Registered Nurse | DX: Z79.01 Long term (current) use of anticoagulants (principal) | CPT/HCPCS: 36416; 85610 ==

== ENCOUNTER 2021-05-23 13:34 | Outpatient (CLI) | payer MEDICARE, OTHER | END 2021-05-23 13:35 | disposition home or self-care (01) | LOC: LAB 13:34 | PROVIDERS: ATTEND Registered Nurse | DX: Z79.01 Long term (current) use of anticoagulants (principal) | CPT/HCPCS: 36416; 85610 ==

== ENCOUNTER 2021-06-06 13:51 | Outpatient (CLI) | payer MEDICARE, OTHER | END 2021-06-06 13:52 | disposition home or self-care (01) | LOC: LAB.S 13:51 | PROVIDERS: ATTEND Registered Nurse | DX: Z79.01 Long term (current) use of anticoagulants (principal) | CPT/HCPCS: 36416; 85610 ==

== ENCOUNTER 2021-07-06 13:40 | Outpatient (CLI) | payer MEDICARE, OTHER | END 2021-07-06 13:41 | disposition home or self-care (01) | LOC: LAB.S 13:40 | PROVIDERS: ATTEND Registered Nurse | DX: Z79.01 Long term (current) use of anticoagulants (principal) | CPT/HCPCS: 36416; 85610 ==

== ENCOUNTER 2021-08-09 12:14 | Outpatient (CLI) | payer MEDICARE, OTHER | END 2021-08-09 12:15 | disposition home or self-care (01) | LOC: LAB.S 12:14 | PROVIDERS: ATTEND Registered Nurse | DX: Z79.01 Long term (current) use of anticoagulants (principal) | CPT/HCPCS: 36416; 85610 ==

== ENCOUNTER 2021-09-01 10:10 | Outpatient (CLI) | payer MEDICARE, OTHER | END 2021-09-01 10:11 | disposition home or self-care (01) | LOC: LAB.S 10:10 | PROVIDERS: ATTEND Registered Nurse | DX: Z79.01 Long term (current) use of anticoagulants (principal) | CPT/HCPCS: 36416; 85610 ==

== ENCOUNTER 2021-09-26 13:40 | Outpatient (CLI) | payer MEDICARE, OTHER | END 2021-09-26 13:41 | disposition home or self-care (01) | LOC: LAB.S 13:40 | PROVIDERS: ATTEND Registered Nurse | DX: Z79.01 Long term (current) use of anticoagulants (principal) | CPT/HCPCS: 36416; 85610 ==

== ENCOUNTER 2021-10-05 13:34 | Outpatient (CLI) | payer MEDICARE, OTHER | END 2021-10-05 13:35 | disposition home or self-care (01) | LOC: LAB.S 13:34 | PROVIDERS: ATTEND Registered Nurse | DX: Z79.01 Long term (current) use of anticoagulants (principal) | CPT/HCPCS: 36416; 85610 ==

== ENCOUNTER 2021-10-26 13:41 | Outpatient (CLI) | payer MEDICARE, OTHER | END 2021-10-26 13:42 | disposition home or self-care (01) | LOC: LAB.S 13:41 | PROVIDERS: ATTEND Registered Nurse | DX: Z79.01 Long term (current) use of anticoagulants (principal) | CPT/HCPCS: 36416; 85610 ==

== ENCOUNTER 2021-11-02 13:27 | Outpatient (CLI) | payer OTHER | END 2021-11-02 13:28 | disposition home or self-care (01) | LOC: LAB.S 13:27 | PROVIDERS: ATTEND Registered Nurse | DX: Z79.01 Long term (current) use of anticoagulants (principal) | CPT/HCPCS: 36416; 85610 ==

== ENCOUNTER 2021-11-16 13:36 | Outpatient (CLI) | payer OTHER | END 2021-11-16 13:37 | disposition home or self-care (01) | LOC: LAB.S 13:36 | PROVIDERS: ATTEND Registered Nurse | DX: Z79.01 Long term (current) use of anticoagulants (principal) | CPT/HCPCS: 36416; 85610 ==

== ENCOUNTER 2021-12-07 09:30 | Outpatient (CLI) | payer MEDICARE, OTHER ==
--- NOTE | 2021-12-07 11:02 | XRAY Report ---
PROCEDURE: Knee 3 View RT INDICATIONS: RIGHT KNEE PAIN TECHNIQUE: 3 views of the right knee(s) were acquired. COMPARISON: Knee x-ray 04/15/2019 FINDINGS: Bones: No fractures or dislocations. No suspicious bony lesions. There is moderate to severe trico mpartmental arthritic change. No erosions are identified. Minimal periarticular osteophytes are prese nt. Slight interval progression is noted compared to prior exam. Soft tissues: Minimal joint effusion. No suspicious soft tissue calcifications. IMPRESSION: Tricompartmental arthritic change with minimal interval progression. Reviewed by: Codi Zuniga MD on 12/07/2021 11:00 AM PDT Approved by: Codi Zuniga MD on 12/07/2021 11:00 AM PDT Station ID: [id number]
== END 2021-12-07 23:59 | disposition home or self-care (01) ==
LOC: DI.S 09:30
PROVIDERS: ATTEND Physician Assistant Medical
DX: M17.11 Unilateral primary osteoarthritis, right knee (principal)

== ENCOUNTER 2021-12-14 08:56 | Outpatient (CLI) | payer MEDICARE, OTHER ==
[2021-12-14 14:58] LABS: BASOPHILS % (AUTO) 0.5 %; EOSINOPHILS # (AUTO) 0.2 10^3/uL (0.0-0.7); EOSINOPHILS % (AUTO) 2.6 %; HCT - HEMATOCRIT 38.4 % (42.0-52.0); LYMPHOCYTES # (AUTO) 0.8 10^3/uL (1.5-3.5); LYMPHOCYTES % (AUTO) 13.2 %; MEAN CORPUSCULAR HEMOGLOBIN 31.2 pg (27.0-31.0); MEAN CORPUSCULAR HGB CONC 33.9 g/dL (32.0-36.0); MEAN CORPUSCULAR VOLUME 92.1 fL (80.0-94.0); MEAN PLATELET VOLUME 9.3 fL (7.4-11.4); MONOCYTES # (AUTO) 0.5 10^3/uL (0.0-1.0); MONOCYTES % (AUTO) 9.3 %; NEUTROPHILS # (AUTO) 4.2 10^3/uL (1.5-6.6); PLT - PLATELET COUNT 287 10^3/uL (130-450); RED BLOOD COUNT 4.17 10^6/uL (4.70-6.10); RED CELL DISTRIBUTION WIDTH 13.5 % (12.0-15.0); WHITE BLOOD COUNT 5.7 x10^3/uL (4.8-10.8)
[2021-12-14 15:42] LABS: ALBUMIN 3.9 g/dL (3.2-5.5); ALBUMIN/GLOBULIN RATIO 1.4 (1.0-2.2); ALKALINE PHOSPHATASE 66 IU/L (42-121); ALT ALANINE AMINOTRANSFERASE 27 IU/L (10-60); AST ASPARTATE AMINOTRANSFERASE 24 IU/L (10-42); BILIRUBIN,TOTAL 0.7 mg/dL (0.2-1.0); BUN - BLOOD UREA NITROGEN 13 mg/dL (6-20); CALCIUM 8.8 mg/dL (8.5-10.3); CARBON DIOXIDE - CO2 27 mmol/L (21-32); CHLORIDE 94 mmol/L (101-111); CHOL/HDL RATIO 2.8 (<5.0); CHOLESTEROL 156 mg/dL; CREATININE 0.8 mg/dL (0.6-1.2); GFR - MDRD 93 (>89); GLUCOSE 108 mg/dL (70-100); HDL CHOLESTEROL 56 mg/dL; LDL CHOLESTEROL,CALCULATED 91 mg/dL; LDL/HDL RATIO 1.6 (<3.6); POTASSIUM 3.9 mmol/L (3.5-5.0); SODIUM 128 mmol/L (135-145); TOTAL PROTEIN 6.6 g/dL (6.7-8.2); TRIGLYCERIDES 45 mg/dL; VLDL CHOLESTEROL 9 mg/dL
[2021-12-14 16:09] LABS: INR 1.7 (0.8-1.2)
== END 2021-12-14 08:57 | disposition home or self-care (01) ==
LOC: LAB.S 08:56
PROVIDERS: ATTEND Physician Assistant Medical
DX: Z79.01 Long term (current) use of anticoagulants (principal); I10 Essential (primary) hypertension; E78.5 Hyperlipidemia, unspecified
CPT/HCPCS: 36415; 80053; 80061; 83721; 85025; 85610

== ENCOUNTER 2022-01-04 13:39 | Outpatient (CLI) | payer MEDICARE, OTHER | END 2022-01-04 13:40 | disposition home or self-care (01) | LOC: LAB.S 13:39 | PROVIDERS: ATTEND Registered Nurse | DX: Z79.01 Long term (current) use of anticoagulants (principal) | CPT/HCPCS: 36416; 85610 ==

== ENCOUNTER 2022-02-08 13:38 | Outpatient (CLI) | payer MEDICARE, OTHER | END 2022-02-08 13:39 | disposition home or self-care (01) | LOC: LAB.S 13:38 | PROVIDERS: ATTEND Registered Nurse | DX: Z79.01 Long term (current) use of anticoagulants (principal) | CPT/HCPCS: 36416; 85610 ==

== ENCOUNTER 2022-03-16 08:00 | Outpatient (CLI) | payer MEDICARE, OTHER ==
--- NOTE | 2022-03-16 15:46 | XRAY Report ---
PROCEDURE: Hip 2 View RT INDICATIONS: RIGHT HIP PAIN TECHNIQUE: 2 views of the right hip were acquired. COMPARISON: None FINDINGS: Bones: No fractures or dislocations. No suspicious bony lesions. The visualized pelvic ring appear s intact. Mild osseous hypertrophy of the right hip compatible with arthritis. Soft tissues: No suspicious soft tissue calcifications or masses. IMPRESSION: Mild right hip osteoarthritis. Reviewed by: Keisha Webb MD, PhD on 03/16/2022 3:45 PM PDT Approved by: Keisha Webb MD, PhD on 03/16/2022 3:45 PM PDT Station ID: [id number]
== END 2022-03-16 23:59 | disposition home or self-care (01) ==
LOC: DI.WOS 08:00
PROVIDERS: ATTEND Physician Assistant Surgical
DX: M16.11 Unilateral primary osteoarthritis, right hip (principal); Z79.01 Long term (current) use of anticoagulants
CPT/HCPCS: 36416; 85610

== ENCOUNTER 2022-03-16 14:33 | Outpatient (CLI) | payer MEDICARE, OTHER | END 2022-03-16 14:34 | disposition home or self-care (01) | LOC: LAB.S 14:33 | PROVIDERS: ATTEND Registered Nurse | DX: Z79.01 Long term (current) use of anticoagulants (principal) | CPT/HCPCS: 36416; 85610 ==

== ENCOUNTER 2022-04-13 13:45 | Outpatient (CLI) | payer MEDICARE, OTHER | END 2022-04-13 13:46 | disposition home or self-care (01) | LOC: LAB.S 13:45 | PROVIDERS: ATTEND Registered Nurse | DX: Z79.01 Long term (current) use of anticoagulants (principal) | CPT/HCPCS: 36416; 85610 ==

== ENCOUNTER 2022-05-14 11:36 | Outpatient (CLI) | payer MEDICARE, OTHER | END 2022-05-14 11:37 | disposition home or self-care (01) | LOC: LAB.S 11:36 | PROVIDERS: ATTEND Registered Nurse | DX: Z79.01 Long term (current) use of anticoagulants (principal) | CPT/HCPCS: 36416; 85610 ==

== ENCOUNTER 2022-05-22 13:38 | Outpatient (CLI) | payer MEDICARE, OTHER | END 2022-05-22 13:39 | disposition home or self-care (01) | LOC: LAB.S 13:38 | PROVIDERS: ATTEND Registered Nurse | DX: Z79.01 Long term (current) use of anticoagulants (principal) | CPT/HCPCS: 36416; 85610 ==

== ENCOUNTER 2022-05-22 19:04 | Outpatient (CLI) | payer MEDICARE, OTHER | END 2022-05-22 19:05 | disposition short-term general hospital (02) | LOC: EMS 19:04 | DX: R07.9 Chest pain, unspecified (principal); R00.2 Palpitations; I48.91 Unspecified atrial fibrillation; Z79.01 Long term (current) use of anticoagulants | CPT/HCPCS: A0425; A0427 ==

== ENCOUNTER 2022-05-31 10:12 | Outpatient (CLI) | payer MEDICARE, OTHER | END 2022-05-31 10:13 | disposition home or self-care (01) | LOC: LAB.S 10:12 | PROVIDERS: ATTEND Registered Nurse | DX: Z79.01 Long term (current) use of anticoagulants (principal) | CPT/HCPCS: 36416; 85610 ==

== ENCOUNTER 2022-06-07 13:39 | Outpatient (CLI) | payer MEDICARE, OTHER | END 2022-06-07 13:40 | disposition home or self-care (01) | LOC: LAB.S 13:39 | PROVIDERS: ATTEND Registered Nurse | DX: Z79.01 Long term (current) use of anticoagulants (principal) | CPT/HCPCS: 36416; 85610 ==

== ENCOUNTER 2022-06-19 13:27 | Outpatient (CLI) | payer MEDICARE, OTHER | END 2022-06-19 13:28 | disposition home or self-care (01) | LOC: LAB.S 13:27 | PROVIDERS: ATTEND Registered Nurse | DX: Z79.01 Long term (current) use of anticoagulants (principal) | CPT/HCPCS: 36416; 85610 ==

== ENCOUNTER 2022-07-02 13:37 | Outpatient (CLI) | payer MEDICARE, OTHER | END 2022-07-02 13:38 | disposition home or self-care (01) | LOC: LAB.S 13:37 | PROVIDERS: ATTEND Registered Nurse | DX: Z79.01 Long term (current) use of anticoagulants (principal) | CPT/HCPCS: 36416; 85610 ==

== ENCOUNTER 2022-07-18 12:55 | Outpatient (CLI) | payer MEDICARE, OTHER | END 2022-07-18 12:56 | disposition home or self-care (01) | LOC: LAB.S 12:55 | PROVIDERS: ATTEND Registered Nurse | DX: Z79.01 Long term (current) use of anticoagulants (principal) | CPT/HCPCS: 36416; 85610 ==

== ENCOUNTER 2022-08-15 14:23 | Outpatient (CLI) | payer MEDICARE | END 2022-08-15 14:24 | disposition home or self-care (01) | LOC: LAB.S 14:23 | PROVIDERS: ATTEND Registered Nurse | DX: Z79.01 Long term (current) use of anticoagulants (principal) | CPT/HCPCS: 36416; 85610 ==

== ENCOUNTER 2022-08-23 13:55 | Outpatient (CLI) | payer MEDICARE | END 2022-08-23 13:56 | disposition home or self-care (01) | LOC: LAB.S 13:55 | PROVIDERS: ATTEND Registered Nurse | DX: Z79.01 Long term (current) use of anticoagulants (principal) | CPT/HCPCS: 36416; 85610 ==

== ENCOUNTER 2022-09-19 10:36 | Outpatient (CLI) | payer MEDICARE | END 2022-09-19 10:37 | disposition home or self-care (01) | LOC: LAB.S 10:36 | PROVIDERS: ATTEND Registered Nurse | DX: Z79.01 Long term (current) use of anticoagulants (principal) | CPT/HCPCS: 36416; 85610 ==

== ENCOUNTER 2022-10-17 09:18 | Outpatient (CLI) | payer MEDICARE, OTHER | END 2022-10-17 09:19 | disposition home or self-care (01) | LOC: LAB.S 09:18 | PROVIDERS: ATTEND Registered Nurse | DX: Z79.01 Long term (current) use of anticoagulants (principal) | CPT/HCPCS: 36416; 85610 ==

== ENCOUNTER 2022-10-25 13:53 | Outpatient (CLI) | payer MEDICARE, OTHER | END 2022-10-25 13:54 | disposition home or self-care (01) | LOC: LAB.S 13:53 | PROVIDERS: ATTEND Registered Nurse | DX: Z79.01 Long term (current) use of anticoagulants (principal) | CPT/HCPCS: 36416; 85610 ==

== ENCOUNTER 2022-11-01 13:28 | Outpatient (CLI) | payer MEDICARE, OTHER | END 2022-11-01 13:29 | disposition home or self-care (01) | LOC: LAB.S 13:28 | PROVIDERS: ATTEND Registered Nurse | DX: Z79.01 Long term (current) use of anticoagulants (principal) | CPT/HCPCS: 36416; 85610 ==

== ENCOUNTER 2022-11-08 13:38 | Outpatient (CLI) | payer MEDICARE, OTHER | END 2022-11-08 13:39 | disposition home or self-care (01) | LOC: LAB.S 13:38 | PROVIDERS: ATTEND Registered Nurse | DX: Z79.01 Long term (current) use of anticoagulants (principal) | CPT/HCPCS: 36416; 85610 ==

== ENCOUNTER 2022-12-04 13:38 | Outpatient (CLI) | payer MEDICARE, OTHER | END 2022-12-04 13:39 | disposition home or self-care (01) | LOC: LAB.S 13:38 | PROVIDERS: ATTEND Registered Nurse | DX: Z79.01 Long term (current) use of anticoagulants (principal) | CPT/HCPCS: 36416; 85610 ==

== ENCOUNTER 2022-12-10 08:00 | Outpatient (CLI) | payer OTHER, MEDICARE ==
--- NOTE | 2022-12-10 16:01 | XRAY Report ---
PROCEDURE: Knee 4 View RT INDICATIONS: RIGHT KNEE PAIN TECHNIQUE: 4 views of the right knee(s) were acquired. One view of the left knee. COMPARISON: None. FINDINGS: Bones: No fractures or dislocations. No suspicious bony lesions. Mild articular osteophyte format ion bilaterally. Soft tissues: No joint effusion. No suspicious soft tissue calcifications. IMPRESSION: Osteoarthritis. No acute fracture. No osseous lesion. If symptoms and/or clinical suspic ion for pathology continue, further assessment with repeat plain films, or advanced imaging (e.g., CT , MRI, or bone scan) is recommended for further assessment. Reviewed by: Dulce Kohli MD on 12/10/2022 4:00 PM PDT Approved by: Dulce Kohli MD on 12/10/2022 4:00 PM PDT Station ID: [id number]
== END 2022-12-10 23:59 | disposition home or self-care (01) ==
LOC: DI.WOS 08:00
PROVIDERS: ATTEND Physician Assistant Surgical
DX: M17.11 Unilateral primary osteoarthritis, right knee (principal)

== ENCOUNTER 2022-12-11 13:19 | Outpatient (CLI) | payer OTHER, MEDICARE | END 2022-12-11 13:20 | disposition home or self-care (01) | LOC: LAB.S 13:19 | PROVIDERS: ATTEND Registered Nurse | DX: Z79.01 Long term (current) use of anticoagulants (principal) | CPT/HCPCS: 36416; 85610 ==

== ENCOUNTER 2022-12-21 13:05 | Outpatient (CLI) | payer MEDICARE, OTHER | END 2022-12-21 13:06 | disposition home or self-care (01) | LOC: LAB.S 13:05 | PROVIDERS: ATTEND Registered Nurse | DX: Z79.01 Long term (current) use of anticoagulants (principal) | CPT/HCPCS: 36416; 85610 ==

== ENCOUNTER 2023-01-15 13:58 | Outpatient (CLI) | payer MEDICARE | END 2023-01-15 13:59 | disposition home or self-care (01) | LOC: LAB.S 13:58 | PROVIDERS: ATTEND Registered Nurse | DX: Z79.01 Long term (current) use of anticoagulants (principal) | CPT/HCPCS: 36416; 85610 ==

== ENCOUNTER 2023-02-14 13:26 | Outpatient (CLI) | payer MEDICARE, OTHER | END 2023-02-14 13:27 | disposition home or self-care (01) | LOC: LAB.S 13:26 | PROVIDERS: ATTEND Registered Nurse | DX: Z79.01 Long term (current) use of anticoagulants (principal) | CPT/HCPCS: 36416; 85610 ==

== ENCOUNTER 2023-03-11 08:20 | Outpatient (CLI) | payer MEDICARE, OTHER | END 2023-03-11 23:59 | disposition short-term general hospital (02) | LOC: EMS 08:20 | DX: R07.89 Other chest pain (principal); M54.2 Cervicalgia; I48.91 Unspecified atrial fibrillation; I45.10 Unspecified right bundle-branch block; R42 Dizziness and giddiness; R26.81 Unsteadiness on feet; Z79.01 Long term (current) use of anticoagulants | CPT/HCPCS: A0425; A0427 ==

== ENCOUNTER 2023-03-18 13:25 | Outpatient (CLI) | payer MEDICARE, OTHER | END 2023-03-18 13:26 | disposition home or self-care (01) | LOC: LAB.S 13:25 | PROVIDERS: ATTEND Registered Nurse | DX: Z79.01 Long term (current) use of anticoagulants (principal) | CPT/HCPCS: 36416; 85610 ==

== ENCOUNTER 2023-04-17 09:17 | Outpatient (CLI) | payer MEDICARE, OTHER ==
[2023-04-17 14:56] LABS: BASOPHILS % (AUTO) 0.4 %; EOSINOPHILS # (AUTO) 0.1 10^3/uL (0.0-0.7); EOSINOPHILS % (AUTO) 1.2 %; HCT - HEMATOCRIT 36.1 % (42.0-52.0); HGB - HEMOGLOBIN 12.2 g/dL (14.0-18.0); LYMPHOCYTES # (AUTO) 0.7 10^3/uL (1.5-3.5); LYMPHOCYTES % (AUTO) 9.6 %; MEAN CORPUSCULAR HEMOGLOBIN 31.4 pg (27.0-31.0); MEAN CORPUSCULAR HGB CONC 33.8 g/dL (32.0-36.0); MEAN PLATELET VOLUME 9.6 fL (7.4-11.4); MONOCYTES # (AUTO) 0.7 10^3/uL (0.0-1.0); MONOCYTES % (AUTO) 10.4 %; NEUTROPHILS # (AUTO) 5.3 10^3/uL (1.5-6.6); NEUTROPHILS % (AUTO) 78.1 %; PLT - PLATELET COUNT 261 10^3/uL (130-450); RED BLOOD COUNT 3.88 10^6/uL (4.70-6.10); RED CELL DISTRIBUTION WIDTH 14.2 % (12.0-15.0); WHITE BLOOD COUNT 6.8 x10^3/uL (4.8-10.8)
[2023-04-17 15:49] LABS: ALBUMIN 3.9 g/dL (3.2-5.5); ALBUMIN/GLOBULIN RATIO 1.8 (1.0-2.2); ALKALINE PHOSPHATASE 83 IU/L (42-121); ALT ALANINE AMINOTRANSFERASE 185 IU/L (10-60); AST ASPARTATE AMINOTRANSFERASE 94 IU/L (10-42); BILIRUBIN,TOTAL 0.9 mg/dL (0.2-1.0); BUN - BLOOD UREA NITROGEN 21 mg/dL (6-20); CALCIUM 9.2 mg/dL (8.5-10.3); CARBON DIOXIDE - CO2 27 mmol/L (21-32); CHLORIDE 95 mmol/L (101-111); CHOL/HDL RATIO 2.5 (<5.0); CHOLESTEROL 109 mg/dL; CREATININE 0.9 mg/dL (0.6-1.3); GFR - MDRD 81 (>89); GLUCOSE 126 mg/dL (74-104); HDL CHOLESTEROL 44 mg/dL; LDL CHOLESTEROL,CALCULATED 52 mg/dL; LDL/HDL RATIO 1.2 (<3.6); POTASSIUM 4.7 mmol/L (3.5-4.5); SODIUM 127 mmol/L (135-145); TOTAL PROTEIN 6.1 g/dL (6.4-8.9); TRIGLYCERIDES 67 mg/dL (48-352); VLDL CHOLESTEROL 13 mg/dL
[2023-04-17 15:51] LABS: DIGOXIN < 0.3 ng/mL
[2023-04-17 17:22] LABS: THYROID STIMULATING HORMONE 5.81 uIU/mL (0.34-5.60)
== END 2023-04-17 09:18 | disposition home or self-care (01) ==
LOC: LAB.S 09:17
PROVIDERS: ATTEND Registered Nurse
DX: I10 Essential (primary) hypertension (principal); I48.0 Paroxysmal atrial fibrillation; E78.5 Hyperlipidemia, unspecified; Z79.899 Other long term (current) drug therapy; Z79.01 Long term (current) use of anticoagulants
CPT/HCPCS: 36415; 80053; 80061; 80162; 83721; 84439; 84443; 85025; 85610

== ENCOUNTER 2023-05-14 13:49 | Outpatient (CLI) | payer MEDICARE, OTHER ==
[2023-05-14 20:08] LABS: THYROID STIMULATING HORMONE 3.01 uIU/mL (0.34-5.60)
[2023-05-14 20:14] LABS: FERRITIN 30.3 ng/mL (23.9-336.2)
== END 2023-05-14 13:50 | disposition home or self-care (01) ==
LOC: LAB.S 13:49
PROVIDERS: ATTEND Registered Nurse
DX: E87.1 Hypo-osmolality and hyponatremia (principal); Z79.01 Long term (current) use of anticoagulants; R53.83 Other fatigue; E87.5 Hyperkalemia; G25.81 Restless legs syndrome
CPT/HCPCS: 36415; 82728; 83540; 84436; 84443; 84466; 84480; 85610

== ENCOUNTER 2023-05-22 09:07 | Outpatient (CLI) | payer MEDICARE, OTHER | END 2023-05-22 09:08 | disposition home or self-care (01) | LOC: LAB.S 09:07 | PROVIDERS: ATTEND Registered Nurse | DX: Z79.01 Long term (current) use of anticoagulants (principal) | CPT/HCPCS: 36416; 85610 ==

== ENCOUNTER 2023-06-03 12:47 | Outpatient (CLI) | payer MEDICARE, OTHER | END 2023-06-03 12:48 | disposition home or self-care (01) | LOC: LAB.S 12:47 | PROVIDERS: ATTEND Registered Nurse | DX: Z79.01 Long term (current) use of anticoagulants (principal) | CPT/HCPCS: 36416; 85610 ==

== ENCOUNTER 2023-07-02 13:48 | Outpatient (CLI) | payer MEDICARE, OTHER | END 2023-07-02 13:49 | disposition home or self-care (01) | LOC: LAB.S 13:48 | PROVIDERS: ATTEND Registered Nurse | DX: Z79.01 Long term (current) use of anticoagulants (principal) | CPT/HCPCS: 36416; 85610 ==

== ENCOUNTER 2023-07-22 09:17 | Outpatient (CLI) | payer MEDICARE, OTHER | END 2023-07-22 09:18 | disposition home or self-care (01) | LOC: LAB.S 09:17 | PROVIDERS: ATTEND Registered Nurse | DX: Z79.01 Long term (current) use of anticoagulants (principal) | CPT/HCPCS: 36416; 85610 ==

== ENCOUNTER 2023-07-31 10:00 | Outpatient (CLI) | payer MEDICARE, OTHER | END 2023-07-31 10:01 | disposition home or self-care (01) | LOC: LAB.S 10:00 | PROVIDERS: ATTEND Registered Nurse | DX: Z79.01 Long term (current) use of anticoagulants (principal) | CPT/HCPCS: 36416; 85610 ==

== ENCOUNTER 2023-08-26 10:12 | Outpatient (CLI) | payer MEDICARE, OTHER ==
--- NOTE | 2023-08-26 13:19 | XRAY Report ---
PROCEDURE: Chest 2 View X-Ray INDICATIONS: DYSPNEA TECHNIQUE: 2 views of the chest were acquired. COMPARISON: CXR 05/11/2020. CT chest 03/07/2017. FINDINGS: Surgical changes and devices: None. Lungs and pleura: No pneumothorax. No consolidation identified. Prominent pulmonary markings. Emphys ematous change seen on remote CT. Suspect trace pleural effusions. Mediastinum: Mediastinal contours appear unchanged. Heart size is normal. Bones and chest wall: No suspicious bony lesions. Overlying soft tissues appear unremarkable. IMPRESSION: Suspect trace pleural effusions. Reviewed by: Mark Barbosa MD on 08/26/2023 1:17 PM PST Approved by: Mark Barbosa MD on 08/26/2023 1:17 PM PST Station ID: [id number]
== END 2023-08-26 10:13 | disposition home or self-care (01) ==
LOC: DI.S 10:12
PROVIDERS: ATTEND Registered Nurse
DX: R06.00 Dyspnea, unspecified (principal); Z79.01 Long term (current) use of anticoagulants
CPT/HCPCS: 36416; 85610

== ENCOUNTER 2023-09-06 12:02 | Outpatient (CLI) | payer MEDICARE, OTHER ==
[2023-09-06 15:26] LABS: BASOPHILS # (AUTO) 0.1 10^3/uL (0.0-0.1); BASOPHILS % (AUTO) 0.7 %; EOSINOPHILS # (AUTO) 0.1 10^3/uL (0.0-0.7); EOSINOPHILS % (AUTO) 1.1 %; HCT - HEMATOCRIT 41.9 % (42.0-52.0); HGB - HEMOGLOBIN 13.7 g/dL (14.0-18.0); LYMPHOCYTES # (AUTO) 1.1 10^3/uL (1.5-3.5); LYMPHOCYTES % (AUTO) 12.4 %; MEAN CORPUSCULAR HEMOGLOBIN 31.4 pg (27.0-31.0); MEAN CORPUSCULAR HGB CONC 32.7 g/dL (32.0-36.0); MEAN CORPUSCULAR VOLUME 95.9 fL (80.0-94.0); MEAN PLATELET VOLUME 10.3 fL (7.4-11.4); MONOCYTES # (AUTO) 0.9 10^3/uL (0.0-1.0); MONOCYTES % (AUTO) 10.6 %; NEUTROPHILS # (AUTO) 6.4 10^3/uL (1.5-6.6); PLT - PLATELET COUNT 229 10^3/uL (130-450); RED BLOOD COUNT 4.37 10^6/uL (4.70-6.10); RED CELL DISTRIBUTION WIDTH 16.2 % (12.0-15.0); WHITE BLOOD COUNT 8.6 x10^3/uL (4.8-10.8)
[2023-09-06 17:04] LABS: INFLUENZA A- RESP PCR PANEL NOT DETECTED; INFLUENZA B - RESP PCR PANEL NOT DETECTED; RSV- RESP PCR PANEL NOT DETECTED; SARS-CoV-2 -RESP PCR PANEL NOT DETECTED
== END 2023-09-06 12:03 | disposition home or self-care (01) ==
LOC: LAB.S 12:02
PROVIDERS: ATTEND Registered Nurse
DX: I48.91 Unspecified atrial fibrillation (principal); Z79.01 Long term (current) use of anticoagulants; R06.00 Dyspnea, unspecified
CPT/HCPCS: 36415; 83880; 84484; 85025; 87637

== ENCOUNTER 2023-10-11 14:37 | Outpatient (CLI) | payer MEDICARE, OTHER | END 2023-10-11 14:38 | disposition home or self-care (01) | LOC: LAB.S 14:37 | PROVIDERS: ATTEND Registered Nurse | DX: Z51.81 Encounter for therapeutic drug level monitoring (principal); Z79.01 Long term (current) use of anticoagulants | CPT/HCPCS: 36416; 85610 ==

== ENCOUNTER 2023-11-14 13:42 | Outpatient (CLI) | payer MEDICARE, OTHER | END 2023-11-14 13:43 | disposition home or self-care (01) | LOC: LAB.S 13:42 | PROVIDERS: ATTEND Registered Nurse | DX: Z51.81 Encounter for therapeutic drug level monitoring (principal); Z79.01 Long term (current) use of anticoagulants | CPT/HCPCS: 85610 ==

== ENCOUNTER 2023-12-13 13:29 | Outpatient (CLI) | payer MEDICARE, OTHER | END 2023-12-13 13:30 | disposition home or self-care (01) | LOC: LAB.S 13:29 | PROVIDERS: ATTEND Registered Nurse | DX: Z79.01 Long term (current) use of anticoagulants (principal) | CPT/HCPCS: 36416; 85610 ==

== ENCOUNTER 2024-01-16 13:56 | Outpatient (CLI) | payer MEDICARE, OTHER | END 2024-01-16 13:57 | disposition home or self-care (01) | LOC: LAB.S 13:56 | PROVIDERS: ATTEND Registered Nurse | DX: Z79.01 Long term (current) use of anticoagulants (principal) | CPT/HCPCS: 36416; 85610 ==

== ENCOUNTER 2024-02-14 10:08 | Outpatient (CLI) | payer MEDICARE, OTHER | END 2024-02-14 10:09 | disposition home or self-care (01) | LOC: LAB.S 10:08 | PROVIDERS: ATTEND Registered Nurse | DX: Z51.81 Encounter for therapeutic drug level monitoring (principal); Z79.01 Long term (current) use of anticoagulants | CPT/HCPCS: 36416; 85610 ==

== ENCOUNTER 2024-02-19 13:52 | Outpatient (CLI) | payer MEDICARE, OTHER | END 2024-02-19 13:53 | disposition home or self-care (01) | LOC: LAB.S 13:52 | PROVIDERS: ATTEND Registered Nurse | DX: Z79.01 Long term (current) use of anticoagulants (principal) | CPT/HCPCS: 36416; 85610 ==

== ENCOUNTER 2024-03-12 13:40 | Outpatient (CLI) | payer MEDICARE, OTHER | END 2024-03-12 13:41 | disposition home or self-care (01) | LOC: LAB.S 13:40 | PROVIDERS: ATTEND Registered Nurse | DX: Z51.81 Encounter for therapeutic drug level monitoring (principal); Z79.01 Long term (current) use of anticoagulants | CPT/HCPCS: 36416; 85610 ==

== ENCOUNTER 2024-04-15 11:06 | Outpatient (CLI) | payer MEDICARE, OTHER | END 2024-04-15 11:07 | disposition home or self-care (01) | LOC: LAB.S 11:06 | PROVIDERS: ATTEND Registered Nurse | DX: Z51.81 Encounter for therapeutic drug level monitoring (principal); Z79.01 Long term (current) use of anticoagulants | CPT/HCPCS: 85610 ==

== ENCOUNTER 2024-05-15 11:28 | Outpatient (CLI) | payer MEDICARE, OTHER | END 2024-05-15 11:29 | disposition home or self-care (01) | LOC: LAB.S 11:28 | PROVIDERS: ATTEND Registered Nurse | DX: Z51.81 Encounter for therapeutic drug level monitoring (principal); Z79.01 Long term (current) use of anticoagulants | CPT/HCPCS: 36416; 85610 ==

== ENCOUNTER 2024-06-12 10:32 | Outpatient (CLI) | payer MEDICARE, OTHER | END 2024-06-12 10:33 | disposition home or self-care (01) | LOC: LAB.S 10:32 | PROVIDERS: ATTEND Registered Nurse | DX: Z51.81 Encounter for therapeutic drug level monitoring (principal); Z79.01 Long term (current) use of anticoagulants | CPT/HCPCS: 36416; 85610 ==